=== PATIENT | female | born 1990 | race Caucasian/White ===

== ENCOUNTER 2023-01-24 12:03 | Inpatient (IN) | payer OTHER, SELFPAY ==
[2023-01-24 12:12] VITALS: BP 137/80; PULSE 92; RESP 16; TEMP 36.5; O2SAT 98; BMI 31.6
--- NOTE | 2023-01-24 12:46 | W.ED.PSYCHS ---
HPI - Psych General: Chief Complaint: Psychiatric Symptoms Stated Complaint: mhe Time Seen by Provider: 01/24/23 12:03 Source: patient Mode of arrival: ambulatory Limitations: no limitations History of Present Illness: 32-year-old female with history of bipolar states that she feels like she is overmedicated. She states she is just been feeling very out of it very flat she states she been having increasing depression as well as along with increasing suicidal thoughts. She states she does not have a specific plan but this has had more severe depression than typical for her. She denies any worsening proving factors. Associated symptoms: Reports depression and suicidal ideation Review of Systems Const: Denies: fever(s), chills, body aches or change in appetite Eyes: Denies: blurry vision or eye discomfort ENMT: Denies: throat pain or dental pain Card: Denies: chest pain Resp: Denies: dyspnea GI: Denies: abdominal pain or nausea Musc: Denies: neck pain or back pain Skin/Breast: Denies: rash Neuro: Denies: headache(s) Psych: Reports: depression and suicidal ideation Physical Exam Const: COMMON NORMALS: no acute distress, patient oriented x3 and healthy appearing HENMT: COMMON NORMALS: normocephalic and atraumatic HEAD & SCALP: normocephalic and atraumatic Eye: COMMON NORMALS: conjunctivae normal CONJUNCTIVA: Yes conjunctivae normal Neck/C-Spine: COMMON NORMALS: full ROM and supple Chest: COMMONS NORMALS: normal inspection of the chest and normal palpation of entire chest wall Resp: COMMON NORMALS: normal respiratory effort, No retractions, No use of accessory muscles and clear to auscultation bilaterally AUSCULTATION: clear to auscultation bilaterally Cardio: COMMON NORMALS: regular rate, regular rhythm and No murmurs present (Cardio) RATE: regular rate RHYTHM: regular rhythm GI: COMMON NORMALS: Normal to inspection, nondistended, normoactive bowel sounds present, Soft to palpation, non-tender and no masses PALPATION: Yes Soft to palpation Extremity: COMMON NORMALS: normal to inspection and full ROM Neuro: COMMON NORMALS: patient oriented x3, moves all extremities and no focal motor deficits Psych: COMMON NORMALS: mental status grossly normal, Normal thought process present and cooperative ATTITUDE: Yes Withdrawn affect present MOOD & AFFECT: Yes depressed mood THOUGHT PROCESS: Normal thought process present Skin: COMMON NORMALS: no rashes or lesions noted and no wounds GENERAL SKIN EXAM: no rashes or lesions noted Course Vital Signs: Vital signs: Vital Signs Temperature 97.7 F 01/24/23 12:12 Pulse Rate 92 01/24/23 12:12 Respiratory Rate 16 01/24/23 12:12 Blood Pressure 137/80 01/24/23 12:12 Pulse Oximetry 98 01/24/23 12:12 Oxygen Delivery Me thod Room Air 01/24/23 12:12 [facility] - Psych Medical Decision Making Patient presents here with depression history of bipolar she is voluntarily wanting to be admitted she is medically cleared I spoke to the psychiatrist and will admit to the psych [facility]. Medical Records I reviewed the patient's medical records. Lab Data I reviewed the patient's lab results. 01/24/23 12:42 01/24/23 12:42 Laboratory Results WBC 9.2 10^3/uL (4.0-10.0) 01/24/23 12:42 RBC 4.60 10^6/uL (4.1-5.3) 01/24/23 12:42 Hgb 13.9 g/dL (11.5-15.3) 01/24/23 12:42 Hct 43.1 % (37.0-47.0) 01/24/23 12:42 MCV 93.7 fl (81-99) 01/24/23 12:42 MCH 30.2 pg (28.0-34.0) 01/24/23 12:42 MCHC 32.3 g/dL (30.0-36.0) 01/24/23 12:42 RDW 14.0 % (12.1-15.1) 01/24/23 12:42 Plt Count 286 10^3/cmm (130-400) 01/24/23 12:42 MPV 10.6 fL (7.4-10.4) H 01/24/23 12:42 Neut % (Auto) 67.0 % 01/24/23 12:42 Lymph % (Auto) 25.2 % 01/24/23 12:42 [place] % (Auto) 6.0 % 01/24/23 12:42 Eos % (Auto) 1.1 % 01/24/23 12:42 Baso % (Auto) 0.5 % 01/24/23 12:42 Neut # (Auto) 6.14 10^3/uL (1.8-7.7) 01/24/23 12:42 Lymph # (Auto) 2.3 10^3/uL (0.8-4.8) 01/24/23 12:42 [place] # (Auto) 0.6 10^3/uL (0.2-0.9) 01/24/23 12:42 Eos # (Auto) 0.1 10^3/uL (0.0-0.8) 01/24/23 12:42 Baso # (Auto) 0.1 10^3/uL (0.0-0.1) 01/24/23 12:42 Nucleated RBC % (auto) 0 % 01/24/23 12:42 Nucleated RBCs # 0.0 /100WBC 01/24/23 12:42 HCG, Qual Negative (Negative) 01/24/23 12:30 Discharge Plan Discharge Patient Disposition: Admitted As Inpatient Clinical Impression: Depression, Bipolar disorder Condition: Stable Referrals: Thomas Sapp FNP [Primary Care Provider] - Coding Level of Care Code ED [facility] for Lemuel Vidal
[2023-01-24 13:00] LABS: Basophils # 0.1 10^3/uL (0.0-0.1); Basophils % 0.5 %; Eosinophils # 0.1 10^3/uL (0.0-0.8); Eosinophils % 1.1 %; Hematocrit 43.1 % (37.0-47.0); Hemoglobin 13.9 g/dL (11.5-15.3); Lymphocytes # 2.3 10^3/uL (0.8-4.8); Lymphocytes % 25.2 %; Mean Corpuscular HGB Conc 32.3 g/dL (30.0-36.0); Mean Corpuscular Hemoglobin 30.2 pg (28.0-34.0); Mean Corpuscular Volume 93.7 fl (81-99); Mean Platelet Volume 10.6 fL (7.4-10.4); Monocytes # 0.6 10^3/uL (0.2-0.9); Neutrophils # 6.14 10^3/uL (1.8-7.7); Nucleated Red Blood Cells % 0 %; Platelet Count 286 10^3/cmm (130-400); White Blood Count 9.2 10^3/uL (4.0-10.0)
[2023-01-24 13:02] LABS: HCG Qualitative Urine. Negative (Negative)
[2023-01-24 13:21] LABS: Alanine Aminotransferase 12 U/L (0-33); Albumin Level 4.1 g/dL (3.5-5.2); Alkaline Phosphatase 41 U/L (35-105); Anion Gap 19.2 (5-19); Aspartate Amino Transferase 13 U/L (0-32); Blood Urea Nitrogen 14 mg/dL (6-20); Calcium 8.8 mg/dL (8.5-10.5); Carbon Dioxide 23 mmol/L (22-29); Chloride 100 mmol/L (98-107); Creatinine Clr Calc Pharmacy 107.4211; Globulin 3.2 g/dL (1.3-4.6); Glomerular Filtration Rate 82.1 mL/min (90-130); Glucose 134 mg/dL (65-115); Osmolality Calculated 288 mOsm/kg (285-295); Potassium 4.2 mmol/L (3.5-5.1); Sodium 138 mmol/L (136-145); Total Bilirubin 0.3 mg/dL (0.15-1.2); Total Protein 7.3 g/dL (6.6-8.7)
[2023-01-24 13:25] LABS: Acetaminophen < 5.0 ug/mL (10-30); Alcohol Level < 10 mg/dL (0-10); Salicylate < 0.3 mg/dL (3-10)
[2023-01-24 13:27] LABS: Amphetamines Screen Urine Negative (Negative); Barbiturates Screen Urine Negative (Negative); Benzodiazepines Screen Urine Negative (Negative); Cocaine Screen Urine Negative (Negative); Opiate Screen Urine Negative (Negative); PCP Screen Urine Negative (Negative); THC Screen Urine Negative (Negative)
[2023-01-24 14:19] VITALS: BP 107/72; PULSE 79; RESP 16; TEMP 37; O2SAT 98
--- NOTE | 2023-01-24 19:29 | P.NPUHP_ITS ---
Providers/Chief Complaint Admitting Physician: Biju Pedro MD Primary Care Provider: SANTOSH Robert Chief Complaint: mhe HPI NPU History of Present Illness Latesha Elkins is a 32 year old female with a history of type I bipolar disorder diagnosed 12 years ago who reports that she has been feeling more depressed for several months. She endorses that this is her third hospitalization for depression in the last 4 months. She reports that she has felt like her depression is getting worse. She reports low motivation and reports feeling excessively tired. She reports an increase sense of hopelessness and stated that she did not mind if she was . She reports that there has been no recent problems with barrett since her hospitalization in August 2021 for a manic episode. She does report that she had been hospitalized in September 2022 at [facility] and had been prescribed Risperdal doses of 6 mg/day with the patient reporting feeling excessively sedated. She reports that she had lower that medication down to 4 mg a day but continues to report feeling excessively tired. She had reported that she has had an extended history of medication trials for managing her manic episodes. She reports no history of mixed mood symptoms. She endorses having frequent cycling with episodes of depression or barrett occurring at least once every 3 months. She reports that she has been more tearful and states that she has been more forgetful and st ruggling with concentration. She had reported that she had been terrified at the possibility that her 2-year-old son had accidentally taken a pill that she thought she had left out in the home. She reports having some problems with managing reality stating that she sometimes has unusual thoughts when she is depressed as well as at times when she is manic. Her manic symptoms historically have consisted of periods of either irritability or depression with decreased need for sleep and racing thoughts. She denies any drug or alcohol abuse. Inpatient psychiatric history: She reports at least 7-8 psychiatric hospitalizations beginning at the age of 20 initially diagnosed with depression but later confirmed to have bipolar 1 disorder with a past history of overdose on medications with most recent hospitalization in September 2022 at [facility]. Outpatient psychiatric history: She reports that she sees a Dr. TIFF Damon. She reports previous medication trials include Jose Benz lithium Wellbutrin olanzapine and Prozac. Current psychiatric medications: Risperdal 2 mg 3 times a day, Depakote 500 mg twice a day, Celexa 40 mg daily, Synthroid 88 mcg daily Medical history: Hypothyroidism Surgical history: 2 C-sections Allergies: Penicillin Legal history: None Drug and alcohol history: None actively, she had reported occasional alcohol use but denies any history of alcohol dependence with no history of withdrawal symptoms. Family psychiatric history maternal history of depression and maternal grandmother have been diagnosed with bipolar disorder Social history: Patient was born in [place] and raised in an intact family. She reported no educational difficulties and graduated high school while attending college. She denied any history of mood disorders and no history of sexual physical or emotional abuse reported during childhood or adulthood. 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 She has 2 children ages 4 and 2. 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 She reports good social supports. Meds NPU Allergies Allergy/AdvReac Type Severity Reaction Status Date / Time Penicillins Allergy ALGY-Rash Verified 01/24/23 12:18 Mental Status Exam MSE Comments: She is a casually dressed pleasant white female who appeared in moderate to severe distress. There was significant psychomotor retardation and some psychomotor slowing. Patient did appear to have some cogwheel rigidity on examination and a slow but steady gait. Her speech was monotone in quality and normal in rate and volume. Her mood was described as depressed. Her affect was tearful and restricted in range. She endorsed passive suicidal ideation with no active plan. She denied any homicidal ideation. She did not appear to be responding to internal stimuli. There was no clear evidence of delusional thinking or overvalued ideas. Her insight was limited. Her judgment was poor. Her impulse control appeared limited as well. Her recent and remote memory appeared grossly intact. She was alert and oriented to person place and time. Vitals/I&O/Wt Last Vital Signs Temp 98.6 F 01/24/23 14:19 Pulse 79 01/24/23 14:19 Resp 16 01/24/23 14:19 BP 107/72 01/24/23 14:19 Pulse Ox 98 01/24/23 14:19 O2 Del Method Room Air 01/24/23 14:22 Weight last 48 hrs Weight 86.183 kg Data NPU 01/24/23 12:42 01/24/23 12:42 A&P Assessment and plan (1) Bipolar disorder: Qualifiers: Current bipolar episode type: depressed Current episode severity: severe Psychotic features: unspecified (2) Depression: Plan 1.? ? Engage? patient in individual ,milieu, and group therapy ?2. ? We will attempt to gather collateral information from previous providers ?3. ? TO-15 minute checks on the unit. ?4.? Recommend sober living treatment at the highest level of care to which the patient is willing to commit. 5. Restart Risperidal but reduce to 1mg bid, and initiate seroquel XR 100mg nightly to target bipolar depression, Restart Depakote 500mg bid, Reduce Celexa to 20mg daily. Involuntary Hold Information 96 Hour Hold: 96 Hour Involuntary Admission: No Attestations NPU Medical Necessity Statement*: Inpatient hospitalization is medically necessary and deemed to be the clinically appropriate intervention at this time. The patient will be monitored and medications will be initiated as clinically indicated. The patient is expected to be hospitalized for at least 2 midnights. The patient's likely length of stay is 5 to 7 days. Coding Level of Care Code Acute Code for [facility] Fwd Diagnoses Bipolar disorder F31.9 Current bipolar episode type: depressed Current episode severity: severe Psychotic features: unspecified Depression F32.A
[2023-01-24] MEDS: quetiapine XR (24HR) 50 mg Tablet 100 MG PO (20:09)
[2023-01-24] MEDS: divalproex DR 500 mg Tablet PO (20:09)
[2023-01-24 22:00] VITALS: BP 111/78; PULSE 89; RESP 16; TEMP 36.4; O2SAT 97
[2023-01-25 06:00] VITALS: BP 108/78; PULSE 84; RESP 16; TEMP 36.7; O2SAT 97
[2023-01-25] MEDS: levothyroxine 88 mcg Tablet PO (06:19)
[2023-01-25] MEDS: citalopram 20 mg Tablet 10 MG PO (08:14)
[2023-01-25] MEDS: risperiDONE 1 mg Tablet PO ×2 (08:14→18:32)
[2023-01-25] MEDS: divalproex DR 500 mg Tablet PO ×2 (08:14→18:32)
[2023-01-25 14:00] VITALS: BP 94/59; PULSE 90; RESP 17; TEMP 36.7; O2SAT 99
--- NOTE | 2023-01-25 19:08 | P.NPUPN_ITS ---
Subjective NPU Subjective: Patient is a 32-year-old white female with bipolar disorder type I most recent episode depressed. She had continue to report a sense of hopelessness. Psychoeducation was provided to the patient today regarding barrett and depression. She had reported adequate sleep but stated that she felt tired with the combination of Seroquel and Risperdal despite its reduction. She had endorsed continued sense of hopelessness. She reported having no suicidal thoughts but did report concerns about being able to take care of her children. She had described having extended periods of unhappiness but reported no recent episodes of barrett. She had continued to isolate herself on the milieu. She had reported having difficulties with concentration and memory. Mental Status Exam MSE Comments: She is a casually dressed, pleasant white female who appeared in moderate to severe distress. There was significant psychomotor retardation and some psychomotor slowing. Her gait was slow and steady today. Her speech was monotone in quality and normal in rate and volume. Her mood remained depressed. Her affect was tearful and flat. She endorsed passive suicidal ideation with no active plan. She denied any homicidal ideation. She did not appear to be responding to internal stimuli. There was no clear evidence of delusional thinking or overvalued ideas. Her insight was limited. Her judgment was poor. Her impulse control appeared limited as well. Her recent and remote memory appeared grossly intact. She was alert and oriented to person place and time. Vitals/I&O/Wt Last Vital Signs Temp 98.1 F 01/25/23 14:00 Pulse 90 01/25/23 14:00 Resp 17 01/25/23 14:00 BP 94/59 01/25/23 14:00 Pulse Ox 99 01/25/23 14:00 O2 Del Method Room Air 01/25/23 06:00 Weight last 48 hrs Weight 86.183 kg Data NPU 01/24/23 12:42 01/24/23 12:42 A&P Assessment and plan (1) Bipolar disorder: Qualifiers: Current bipolar episode type: depressed Current episode severity: severe Psychotic features: unspecified (2) Depression: Plan 1.? ? Engage? patient in individual ,milieu, and group therapy ?2. ? We will attempt to gather collateral information from previous providers ?3. ? TO-15 minute checks on the unit. ?4.? Recommend sober living treatment at the highest level of care to which the patient is willing to commit. 5. Reduce risperidone to 1mg at night , and continue seroquel XR at 100mg nightly to target bipolar depression with titration over next 2-3 days. Continue Depakote 500mg bid, Reduce Celexa to 10mg daily. Involuntary Hold Information 96 Hour Hold: 96 Hour Involuntary Admission: No Attestations NPU Medical Necessity Statement*: Inpatient hospitalization is medically necessary and deemed to be the clinically appropriate intervention at this time. The patient's likely length of stay is 5 to 7 days. Coding Level of Care Code Acute Code for [facility] Fwd Diagnoses Bipolar disorder F31.9 Current bipolar episode type: depressed Current episode severity: severe Psychotic features: unspecified Depression F32.A
[2023-01-25] MEDS: quetiapine XR (24HR) 50 mg Tablet 100 MG PO (20:41)
[2023-01-25 22:00] VITALS: BP 85/61; PULSE 99; RESP 16; TEMP 36.7; O2SAT 98
[2023-01-26 06:00] VITALS: BP 132/80; PULSE 88; RESP 15; TEMP 36.5; O2SAT 97
[2023-01-26] MEDS: levothyroxine 88 mcg Tablet PO (09:04)
[2023-01-26] MEDS: citalopram 20 mg Tablet 10 MG PO (09:04)
[2023-01-26] MEDS: divalproex DR 500 mg Tablet PO ×2 (09:04→17:44)
[2023-01-26 14:00] VITALS: BP 91/63; PULSE 86; RESP 16; TEMP 36.7; O2SAT 97
--- NOTE | 2023-01-26 17:37 | P.NPUPN_ITS ---
Subjective NPU Subjective: Patient is a 32-year-old white female with bipolar disorder type I most recent episode depressed. The patient continued to appear depressed. She reported no suicidal thoughts. She had reported some muscle pain. She reported no manic symptoms. She had reported having slept well with the Seroquel initiation. She had continued to isolate herself on the milieu. She reported continued chronic worry about her home situation. She had reported sadness over putting family members under excess duress because of her chronic mental illness. She had been able to attend groups without any difficulty. Mental Status Exam MSE Comments: She is a casually dressed, pleasant white female who appeared in moderate to severe distress. There was significant psychomotor retardation and along with psychomotor slowing.. Her gait was more normal in rate today.. Her speech was monotone in quality and normal in rate and volume. Her mood remained depressed. Her affect was restricted but less tearful. She endorsed passive suicidal ideation with no active plan. She denied any homicidal ideation. She did not appear to be responding to internal stimuli. There was no clear evidence of delusional thinking or overvalued ideas. Her insight was limited. Her judgment was poor. Her impulse control appeared limited as well. Her recent and remote memory appeared grossly intact. She was alert and oriented to person place and time. Vitals/I&O/Wt Last Vital Signs Temp 98.0 F 01/26/23 14:00 Pulse 86 01/26/23 14:00 Resp 16 01/26/23 14:00 BP 91/63 01/26/23 14:00 Pulse Ox 97 01/26/23 14:00 O2 Del Method Room Air 01/26/23 14:00 Data NPU 01/24/23 12:42 01/24/23 12:42 A&P Assessment and plan (1) Bipolar disorder: Qualifiers: Current bipolar episode type: depressed Current episode severity: severe Psychotic features: unspecified (2) Depression: Plan 1.? ? Engage? patient in individual ,milieu, and group therapy 2. ? We will attempt to gather collateral information from previous providers 3. ? TO-15 minute checks on the unit. ? 4.? Recommend sober living treatment at the highest level of care to which the patient is willing to commit. 5. Discontinue Risperdal and increase Seroquel XR 250 mg nightly to target bipolar depression. Continue Depakote 500mg bid, Reduce Celexa to 10mg daily with plan for discontinuation. Involuntary Hold Information 96 Hour Hold: 96 Hour Involuntary Admission: No Attestations NPU Medical Necessity Statement*: Inpatient hospitalization is medically necessary and deemed to be the clinically appropriate intervention at this time. The patient's likely length of stay is 4-6 days. Coding Level of Care Code Acute Code for [facility] Fwd Diagnoses Bipolar disorder F31.9 Current bipolar episode type: depressed Current episode severity: severe Psychotic features: unspecified Depression F32.A
[2023-01-26] MEDS: quetiapine XR (24HR) 50 mg Tablet 150 MG PO (20:32)
[2023-01-26 22:00] VITALS: BP 105/72; PULSE 91; RESP 18; O2SAT 96
[2023-01-27 06:00] VITALS: BP 106/74; PULSE 80; RESP 17; TEMP 36.4; O2SAT 98
[2023-01-27] MEDS: levothyroxine 88 mcg Tablet PO (09:22)
[2023-01-27] MEDS: divalproex DR 500 mg Tablet PO ×2 (09:22→18:31)
[2023-01-27] MEDS: citalopram 20 mg Tablet 10 MG PO (09:22)
[2023-01-27 14:00] VITALS: BP 92/61; PULSE 98; RESP 16; TEMP 36.7; O2SAT 97
--- NOTE | 2023-01-27 15:31 | W.PM.NPUPNS ---
Subjective NPU Subjective: Patient is a 32-year-old white female with bipolar disorder type I most recent episode depressed. The patient had reported feeling less hopeless. She had endorsed having some muscle stiffness. She had reported no changes in regards to energy as she continued to complain of low energy and low motivation. She had continued to isolate herself on the milieu. She reported no feelings of hopelessness or worthlessness. Patient had reported less confusion and stated that she was feeling better with the reduction in risperidone. She had reported having significant problems with maintaining concentration for several months but reported that it exacerbated with the increase in risperidone. Patient was able to attend groups. She had shown evidence of taking care of her activities of daily living. Mental Status Exam MSE Comments: She is a casually dressed, pleasant white female who appeared in moderate distress. There was moderate psychomotor retardation and along with psychomotor slowing. Her gait was more normal in rate today. Her speech was monotone in quality and normal in rate and volume. Her mood remained depressed. Her affect was restricted but not tearful today. She endorsed no suicidal ideation. She denied any homicidal ideation. She did not appear to be responding to internal stimuli. There was no clear evidence of delusional thinking or overvalued ideas. Her insight was limited. Her judgment was poor. Her impulse control appeared limited as well. Her recent and remote memory appeared grossly intact. She was alert and oriented to person place and time. Vitals/I&O/Wt Last Vital Signs Temp 98.1 F 01/27/23 14:00 Pulse 98 01/27/23 14:00 Resp 16 01/27/23 14:00 BP 92/61 01/27/23 14:00 Pulse Ox 97 01/27/23 14:00 O2 Del Method Room Air 01/27/23 06:00 Data NPU 01/24/23 12:42 01/24/23 12:42 A&P Assessment and plan (1) Bipolar disorder: Qualifiers: Current bipolar episode type: depressed Current episode severity: severe Psychotic features: unspecified (2) Depression: Plan 1.? ? Engage? patient in individual ,milieu, and group therapy 2. ? We will attempt to gather collateral information from previous providers 3. ? TO-15 minute checks on the unit. ? 4.? Recommend sober living treatment at the highest level of care to which the patient is willing to commit. 5. Discontinue Risperdal and increase Seroquel XR to 200 mg nightly to target bipolar depression. Continue Depakote 500mg bid, Discontinue celexa. Involuntary Hold Information 96 Hour Hold: 96 Hour Involuntary Admission: No Attestations NPU Medical Necessity Statement*: Inpatient hospitalization is medically necessary and deemed to be the clinically appropriate intervention at this time. The patient's likely length of stay is 4-6 days. Coding Level of Care Code Acute Code for [facility] Diagnoses Bipolar disorder F31.9 Current bipolar episode type: depressed Current episode severity: severe Psychotic features: unspecified Depression F32.A
[2023-01-27] MEDS: quetiapine XR (24HR) 50 mg Tablet 200 MG PO (18:32)
[2023-01-27 22:00] VITALS: BP 99/70; PULSE 78; RESP 16; TEMP 36.6; O2SAT 98
[2023-01-28 06:00] VITALS: BP 90/61; PULSE 82; RESP 19; TEMP 36.6; O2SAT 97
[2023-01-28] MEDS: levothyroxine 88 mcg Tablet PO (09:09)
[2023-01-28] MEDS: divalproex DR 500 mg Tablet PO ×2 (09:09→18:28)
[2023-01-28 14:00] VITALS: BP 113/72; PULSE 70; RESP 15; TEMP 36.7; O2SAT 99
--- NOTE | 2023-01-28 17:08 | NPU.GN ---
[facility] Group Topic: Painting General Mood of Group patient participated in group by painting three pictures. Listened to music and interacted with the group
--- NOTE | 2023-01-28 17:53 | W.PM.NPUPNS ---
Subjective NPU Subjective: Patient is a 32-year-old white female with bipolar disorder type I most recent episode depressed. The patient reported feeling less depressed and reports that she was motivated to get back to taking care of her children. She reports no feelings of hopelessness. She had reported that she felt excessively groggy on her seroquel xr at 200mg at night. She reported no worsening stiffness and stated feeling more alert but reported continued lack of energy. She reported no manic symptoms currently. Mental Status Exam MSE Comments: She is a casually dressed, pleasant white female who appeared in mild distress. There was mild psychomotor retardation and along with psychomotor slowing. Her gait was more normal in rate today. Her speech was monotone in quality and normal in rate and volume. Her mood was described as less depressed. Her affect was restricted in range. She endorsed no suicidal ideation. She denied any homicidal ideation. She did not appear to be responding to internal stimuli. There was no clear evidence of delusional thinking or overvalued ideas. Her insight was limited. Her judgment was poor. Her impulse control appeared limited as well. Her recent and remote memory appeared grossly intact. She was alert and oriented to person place and time. Vitals/I&O/Wt Last Vital Signs Temp 98.1 F 01/28/23 14:00 Pulse 70 01/28/23 14:00 Resp 15 01/28/23 14:00 BP 113/72 01/28/23 14:00 Pulse Ox 99 01/28/23 14:00 O2 Del Method Room Air 01/28/23 06:00 Data NPU 01/24/23 12:42 01/24/23 12:42 A&P Assessment and plan (1) Bipolar disorder: Qualifiers: Current bipolar episode type: depressed Current episode severity: severe Psychotic features: unspecified (2) Depression: Plan 32 year old female admitted with bipolar depression with suicidal ideation and feelings of hopelessness with 3 recent inpatient hospitalizations in last 3 months. 1.? ? Engage? patient in individual ,milieu, and group therapy 2. ? We will attempt to gather collateral information from previous providers 3. ? TO-15 minute checks on the unit. ? 4.? Recommend sober living treatment at the highest level of care to which the patient is willing to commit. 5. Reduce Seroquel XR 150 mg at night to target bipolar depression. Continue Depakote 500mg bid, Check depakote level, cbc with diff, and LFT Involuntary Hold Information 96 Hour Hold: 96 Hour Involuntary Admission: No Attestations NPU Medical Necessity Statement*: Inpatient hospitalization is medically necessary and deemed to be the clinically appropriate intervention at this time. The patient's likely length of stay is 2-3 days. Coding Level of Care Code Acute Code for [facility] Fwd Diagnoses Bipolar disorder F31.9 Current bipolar episode type: depressed Current episode severity: severe Psychotic features: unspecified Depression F32.A
[2023-01-28] MEDS: quetiapine XR (24HR) 50 mg Tablet 150 MG PO (18:28)
[2023-01-28 19:55] VITALS: BP 90/56; PULSE 96; RESP 18; TEMP 36.7; O2SAT 98
[2023-01-29 05:37] VITALS: BP 88/57; PULSE 92; RESP 15; TEMP 36.6; O2SAT 98; BMI 31.1
[2023-01-29] MEDS: divalproex DR 500 mg Tablet PO (09:05)
[2023-01-29] MEDS: levothyroxine 88 mcg Tablet PO (09:05)
[2023-01-29 09:24] LABS: Basophils # 0.1 10^3/uL (0.0-0.1); Basophils % 0.8 %; Eosinophils # 0.2 10^3/uL (0.0-0.8); Eosinophils % 3.3 %; Hemoglobin 14.2 g/dL (11.5-15.3); Lymphocytes # 2.9 10^3/uL (0.8-4.8); Lymphocytes % 45.3 %; Mean Corpuscular HGB Conc 30.2 g/dL (30.0-36.0); Mean Corpuscular Volume 99.2 fl (81-99); Mean Platelet Volume 10.7 fL (7.4-10.4); Monocytes # 0.5 10^3/uL (0.2-0.9); Monocytes % 7.9 %; Neutrophils # 2.66 10^3/uL (1.8-7.7); Neutrophils % 42.4 %; Nucleated Red Blood Cells % 0 %; Platelet Count 238 10^3/cmm (130-400); Red Blood Count 4.74 10^6/uL (4.1-5.3); Red Cell Distribution Width 13.6 % (12.1-15.1); White Blood Count 6.3 10^3/uL (4.0-10.0)
[2023-01-29 09:41] LABS: Valproic Acid Level 71.2 ug/mL (50-100)
[2023-01-29 11:30] LABS: Alanine Aminotransferase 13 U/L (0-33); Albumin Level 3.9 g/dL (3.5-5.2); Alkaline Phosphatase 42 U/L (35-105); Aspartate Amino Transferase 15 U/L (0-32); Globulin 2.8 g/dL (1.3-4.6); Total Bilirubin 0.2 mg/dL (0.15-1.2); Total Protein 6.7 g/dL (6.6-8.7)
--- NOTE | 2023-01-29 11:30 | W.PM.NPUDCS ---
Diagnoses at Discharge Discharge Diagnosis (1) Bipolar disorder: Status: Acute Qualifiers: Current bipolar episode type: depressed Current episode severity: severe Psychotic features: unspecified (2) Depression: Status: Acute Reason for Visit Reason for Visit: mhe Brief History: HPI NPU History of Present Illness Latesha Elkins is a 32 year old female with a history of type I bipolar disorder diagnosed 12 years ago who reports that she has been feeling more depressed for several months.? She endorses that this is her third hospitalization for depression in the last 4 months.? She reports that she has felt like her depression is getting worse.? She reports low motivation and reports feeling excessively tired.? She reports an increase sense of hopelessness and stated that she did not mind if she was .? She reports that there has been no recent problems with barrett since her hospitalization in August 2021 for a manic episode.? She does report that she had been hospitalized in September 2022 at [facility] and had been prescribed Risperdal doses of 6 mg/day with the patient reporting feeling excessively sedated.? She reports that she had lower that medication down to 4 mg a day but continues to report feeling excessively tired.? She had reported that she has had an extended history of medication trials for managing her manic episodes.? She reports no history of mixed mood symptoms.? She endorses having frequent cycling with episodes of depression or barrett occurring at least once every 3 months.? She reports that she has been more tearful and states that she has been more forgetful and struggling with concentration.? She had reported that she had been terrified at the possibility that her 2-year-old son had accidentally taken a pill that she thought she had left out in the home.? She reports having some problems with managing reality stating that she sometimes has unusual thoughts when she is depressed as well as at times when she is manic.? Her manic symptoms historically have consisted of periods of either irritability or depression with decreased need for sleep and racing thoughts.? She denies any drug or alcohol abuse. Inpatient psychiatric history: She reports at least 7-8 psychiatric hospitalizations beginning at the age of 20 initially diagnosed with depression but later confirmed to have bipolar 1 disorder with a past history of overdose on medications with most recent hospitalization in September 2022 at [facility]. Outpatient psychiatric history: She reports that she sees a Dr. TIFF Damon.? She reports previous medication trials include Geodon Abilify Latuda lithium Wellbutrin olanzapine and Prozac. Current psychiatric medications: Risperdal 2 mg 3 times a day, Depakote 500 mg twice a day, Celexa 40 mg daily, Synthroid 88 mcg daily Medical history: Hypothyroidism Surgical history: 2 C-sections Allergies: Penicillin Legal history: None Drug and alcohol history: None actively, she had reported occasional alcohol use but denies any history of alcohol dependence with no history of withdrawal symptoms. Family psychiatric history maternal history of depression and maternal grandmother have been diagnosed with bipolar disorder Social history: Patient was born in [place] and raised in an intact family.? She reported no educational difficulties and graduated high school while attending college.? She denied any history of mood disorders and no history of sexual physical or emotional abuse reported during childhood or adulthood.? 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 She has 2 children ages 4 and 2.? 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 She reports good social supports. Hospital Course Hospital Course During the hospitalization, the patient had routine laboratory studies which were within normal limits except for a few outliers.? Additionally, there was a general medical evaluation which was also within normal limits and revealed no new acute processes.? At the time of discharge, lethality was denied and psychosis was resolving.? Mood and anxiety were well managed.? The patient endorsed a plan to avoid all drugs of abuse and follow up with the aftercare recommendations of the treatment team.? The patient was evaluated and deemed to be absent credible lethality and had achieved the maximum benefit from an inpatient hospitalization, and so was discharged.? Risperidone was tapered and discontinued. Seroquel xr was titrated up to a dose of 200mg at night and patient reported excess sedation and this was reduced to 150mg xr prior to discharge. Patient showed improvement in energy and concentration prior to discharge. Her depakote level was drawn on day of discharge and was 71.2, Liver function tests were within normal limits as well as her CBC on discharge. Involuntary Hold Information 96 Hour Hold: 96 Hour Involuntary Admission: No Mental Status Exam MSE Comments: She is a casually dressed, pleasant white female who appeared in no acute distress. There was slight psychomotor slowing but appeared much improved from admission. Her speech was monotone in quality and normal in rate and volume. Her mood was described as better. Her affect was less restricted in range. She endorsed no suicidal ideation. She denied any homicidal ideation. She did not appear to be responding to internal stimuli. There was no clear evidence of delusional thinking or overvalued ideas. Her insight was improved. Her judgment was fair. Her impulse control appeared improved. Her recent and remote memory appeared grossly intact. She was alert and oriented to person place and time. Discharge Data Studies Completed and Pending: Laboratory Results WBC 6.3 10^3/uL (4.0- 10.0) 01/29/23 08:47 RBC 4.74 10^6/uL (4.1 -5.3) 01/29/23 08:47 Hgb 14.2 g/dL (11.5-1 5.3) 01/29/23 08:47 Hct 47.0 % (37.0-47.0 ) 01/29/23 08:47 MCV 99.2 fl (81-99) H 01/29/23 08:47 MCH 30.0 pg (28.0-34. 0) 01/29/23 08:47 MCHC 30.2 g/dL (30.0-3 6.0) 01/29/23 08:47 RDW 13.6 % (12.1-15.1 ) 01/29/23 08:47 Plt Count 238 10^3/cmm (130 -400) 01/29/23 08:47 MPV 10.7 fL (7.4-10.4 ) H 01/29/23 08:47 Neut % (Auto) 42.4 % 01/29/23 08:47 Lymph % (Auto) 45.3 % 01/29/23 08:47 [place] % (Auto) 7.9 % 01/29/23 08:47 Eos % (Auto) 3.3 % 01/29/23 08:47 Baso % (Auto) 0.8 % 01/29/23 08:47 Neut # (Auto) 2.66 10^3/uL (1.8 -7.7) 01/29/23 08:47 Lymph # (Auto) 2.9 10^3/uL (0.8- 4.8) 01/29/23 08:47 [place] # (Auto) 0.5 10^3/uL (0.2- 0.9) 01/29/23 08:47 Eos # (Auto) 0.2 10^3/uL (0.0- 0.8) 01/29/23 08:47 Baso # (Auto) 0.1 10^3/uL (0.0- 0.1) 01/29/23 08:47 Nucleated RBC % (a uto) 0 % 01/29/23 08:47 Nucleated RBCs # 0.0 /100WBC 01/29/23 08:47 Sodium 138 mmol/L (136-1 45) 01/24/23 12:42 Potassium 4.2 mmol/L (3.5-5 .1) 01/24/23 12:42 Chloride 100 mmol/L (98-10 7) 01/24/23 12:42 Carbon Dioxide 23 mmol/L (22-29) 01/24/23 12:42 Anion Gap 19.2 (5-19) H 01/24/23 12:42 BUN 14 mg/dL (6-20) 01/24/23 12:42 Creatinine 0.8 mg/dL (0.5-0. 9) 01/24/23 12:42 GFR Calculation 82.1 mL/min (90-1 30) L 01/24/23 12:42 Glucose 134 mg/dL (65-115 ) H 01/24/23 12:42 Calculated Osmolal ity 288 mOsm/kg (285- 295) 01/24/23 12:42 Calcium 8.8 mg/dL (8.5-10 .5) 01/24/23 12:42 Total Bilirubin 0.2 mg/dL (0.15-1 .2) 01/29/23 08:47 Direct Bilirubin 0.20 mg/dL (0.00- 0.30) 01/29/23 08:47 AST 15 U/L (0-32) 01/29/23 08:47 ALT 13 U/L (0-33) 01/29/23 08:47 Alkaline Phosphata se 42 U/L (35-105) 01/29/23 08:47 Total Protein 6.7 g/dL (6.6-8.7 ) 01/29/23 08:47 Albumin 3.9 g/dL (3.5-5.2 ) 01/29/23 08:47 Globulin 2.8 g/dL (1.3-4.6 ) 01/29/23 08:47 HCG, Qual Negative (Negati ve) 01/24/23 12:30 Salicylates < 0.3 mg/dL (3-10 ) L 01/24/23 12:42 Urine Opiates Scre en Negative ng/mL (N egative) 01/24/23 12:30 Acetaminophen < 5.0 ug/mL (10-3 0) L 01/24/23 12:42 Ur Barbiturates Sc reen Negative ng/mL (N egative) 01/24/23 12:30 Valproic Acid 71.2 ug/mL (50-10 0) 01/29/23 08:47 Ur Phencyclidine S crn Negative ng/mL (N egative) 01/24/23 12:30 Ur Amphetamines Sc reen Negative ng/mL (N egative) 01/24/23 12:30 U Benzodiazepines Scrn Negative ng/mL (N egative) 01/24/23 12:30 Urine Cocaine Scre en Negative ng/mL (N egative) 01/24/23 12:30 U Marijuana (THC) Screen Negative ng/mL (N egative) 01/24/23 12:30 Ethyl Alcohol < 10 mg/dL (0-10) 01/24/23 12:42 Vitals: Last Vital Signs Temp 97.9 F 01/29/23 05:37 Pulse 92 01/29/23 05:37 Resp 15 01/29/23 05:37 BP 88/57 01/29/23 05:37 Pulse Ox 98 01/29/23 05:37 O2 Del Method Room Air 01/28/23 06:00 Discharge Plan Discharge Patient Disposition: Home Condition: Stable Prescriptions: New Seroquel XR 150 mg tablet extended release 24 hr 150 mg PO QPM Qty: 30 1RF Rx Instructions: Take at 6PM Seroquel XR 50 mg tablet extended release 24 hr 50 mg PO QPM 14 Days Qty: 14 0RF Continued divalproex 500 mg tablet,delayed release (DR/EC) 500 mg PO BID Qty: 60 1RF levothyroxine 88 mcg tablet 88 mcg PO DAILY 30 Days Qty: 30 1RF No Action risperidone 2 mg tablet 2 mg PO TID citalopram 20 mg tablet 20 mg PO DAILY Discharge Orders: Discharge Order (Routine); Ordered 01/29/23 Ordered By: Biju Pedro Referrals: [facility] [Other] - 02/06/23 10:00 am (Appointment with Psychiatrist Susana Bartlett. ) Thomas Sapp, [employer] [Primary Care Provider] - Discharge Diet: Usual diet Discharge Activity: Resume usual activity Patient Instructions: Bipolar Disorder, Depression, Quetiapine (By mouth), Opioid Safety Discharge Attestations NPU Time Spent in Discharge Care*: less than 30 min Coding Level of Care Code Acute [facility] FW DC note Diagnoses Bipolar disorder F31.9 Current bipolar episode type: depressed Current episode severity: severe Psychotic features: unspecified Depression F32.A
--- NOTE | 2023-01-29 11:35 | NPU.GN ---
[facility] Topic:Motivation General Mood of Group patient participated in group, writing down her personal mantras. Patient continues to have negative thoughts about the future. Offered examples of how to do them, with her children like they can color them and possibly say with her . Patient is asking insightful questions about negative thoughts and what to do if they don't go away.
[2023-01-29 11:45] VITALS: BP 88/57; PULSE 92; RESP 15; TEMP 36.6; O2SAT 98
== END 2023-01-29 12:24 | disposition home or self-care (01) | DRG 885 ==
LOC: ER 13:06 → NP 14:10
PROVIDERS: Admitting Provider Psychiatry & Neurology Psychiatry; Emergency Provider Emergency Medicine; PCP Nurse Practitioner; Visit Provider Psychiatry & Neurology Psychiatry
DX: F31.9 Bipolar disorder, unspecified (principal); E03.9 Hypothyroidism, unspecified; Z81.8 Family history of other mental and behavioral disorders
CPT/HCPCS: 36415; 80053; 80076; 80164; 80306; 80307; 81025; 85025; 97150; 97165; 99238; 99285

== ENCOUNTER 2024-06-07 09:10 | Inpatient (IN) | payer OTHER, SELFPAY ==
[2024-06-07 09:17] VITALS: BP 126/86; PULSE 101; RESP 18; TEMP 36.7; O2SAT 98
--- NOTE | 2024-06-07 09:30 | ED.C_ITS ---
HPI - Psych 2 General: Chief Complaint: Psychiatric Symptoms Stated Complaint: MHE Time Seen by Provider: 06/07/24 09:17 Source: patient and family () Mode of arrival: ambulatory Limitations: no limitations History of Present Illness: Patient is a 34-year-old female presents to ED today along with her for mental health evaluation. According to the , patient has been very paranoid at home over the past several days and talking about very elaborate conspiracy theories. She feels like people are after her. Upon arrival to the ER today, she is extremely paranoid. She feels like we are giving her medical information to other people. She is hesitant to provide a history and seems very and untrustful of medical staff. Her thoughts are illogical. states she has a history of Bipolar. MD complaint: altered mental status Onset (ago): day(s) Duration: constant History of same: No Relieving factors: none Exacerbating factors: none Associated psychiatric symptoms: delusions Associated symptoms: Reports delusions; Deny auditory hallucinations, visual hallucinations, depression, homicidal ideation or suicidal ideation Treatments prior to arrival: none Related Data Home Medications Medication Instructions Recorded Confirmed levothyroxine 88 mcg tablet 88 mcg PO QAM 06/07/24 06/07/24 quetiapine 25 mg tablet 25 - 75 mg PO BEDTIME 06/07/24 06/07/24 sertraline 50 mg tablet 50 mg PO QAM 06/07/24 06/07/24 Allergies Allergy/AdvReac Type Severity Reaction Status Date / Time Penicillins Allergy ALGY-Rash Verified 01/24/23 12:18 Review of Systems 2 Const: Denies: fever(s) or chills Card: Denies: chest pain, palpitations, lightheadedness or syncope Resp: Denies: dyspnea GI: Denies: abdominal pain, nausea, vomiting or diarrhea Skin/Breast: Denies: rash Neuro: Denies: headache(s) Psych: Reports: paranoia and difficulty concentrating; Denies: anxiety, depression, visual hallucinations, auditory hallucinations, suicidal ideation or homicidal ideation Physical Exam 2 Const: COMMON NORMALS: average body habitus, patient oriented x3, healthy appearing, alert and well nourished GENERAL APPEARANCE: well kempt Resp: COMMON NORMALS: normal respiratory effort and clear to auscultation bilaterally AUSCULTATION: clear to auscultation bilaterally Cardio: COMMON NORMALS: regular rate and regular rhythm RATE: regular rate RHYTHM: regular rhythm Neuro: COMMON NORMALS: patient oriented x3 SENSORIUM/ORIENTATION: Yes alert Psych: APPEARANCE: Yes grossly normal and Yes well kempt ATTITUDE: Yes calm ACTIVITY/MOTOR BEHAVIOR: Yes Avoids eye contact (attititude/behavior) S PEECH: Yes delayed MOOD & AFFECT: Yes fearful THOUGHT PROCESS: d isorganized and Illogical thought process present THOUGHT CONTENT: Yes delusions INSIGHT: Limited insight present (Psych) JUDGEMENT: Limited judgement present (Psych) Course 2 Consultations: Consultation #1: Dr. Blanco-accepts to NPU Vital Signs: Vital signs: Vital Signs Temperature 98.1 F 06/07/24 09:17 Pulse Rate 101 H 06/07/24 09:17 Respiratory Rate 18 06/07/24 09:17 Blood Pressure 126/86 06/07/24 09:17 Pulse Oximetry 98 06/07/24 09:58 Oxygen Delivery Me thod Room Air 06/07/24 09:58 [facility] - Psych Medical Decision Making Patient will be placed on a 96-hour hold and admitted to NPU for further evaluation and treatment of her psychosis. Medical Records I reviewed the patient's medical records. Lab Data I reviewed the patient's lab results. 06/07/24 09:37 06/07/24 09:37 Laboratory Results WBC 7.15 10^3/uL (3.29-11.43) 06/07/24 09:37 RBC 4.70 10^6/uL (3.85-5.65) 06/07/24 09:37 Hgb 14.00 g/dL (11.27-16.99) 06/07/24 09:37 Hct 42.6 % (36-47) 06/07/24 09:37 MCV 90.6 fl (85-98) 06/07/24 09:37 MCH 29.8 pg (27-33) 06/07/24 09:37 MCHC 32.9 g/dL (30-55) 06/07/24 09:37 RDW 13.1 % (12.1-15.1) 06/07/24 09:37 Plt Count 326 10^3/cmm (157-399) 06/07/24 09:37 MPV 9.6 fL (7.4-10.4) 06/07/24 09:37 Neut % (Auto) 71.7 % 06/07/24 09:37 Lymph % (Auto) 18.2 % 06/07/24 09:37 [place] % (Auto) 8.8 % 06/07/24 09:37 Eos % (Auto) 0.6 % 06/07/24 09:37 Baso % (Auto) 0.6 % 06/07/24 09:37 Neut # (Auto) 5.13 10^3/uL (1.8-7.7) 06/07/24 09:37 Lymph # (Auto) 1.3 10^3/uL (0.8-4.8) 06/07/24 09:37 [place] # (Auto) 0.6 10^3/uL (0.2-0.9) 06/07/24 09:37 Eos # (Auto) 0.0 10^3/uL (0.0-0.8) 06/07/24 09:37 Baso # (Auto) 0.0 10^3/uL (0.0-0.1) 06/07/24 09:37 Nucleated RBC % (auto) 0 % 06/07/24 09:37 Nucleated RBCs # 0.0 /100WBC 06/07/24 09:37 Sodium 136 mmol/L (136-145) 06/07/24 09:37 Potassium 4.1 mmol/L (3.5-5.1) 06/07/24 09:37 Chloride 103 mmol/L (98-107) 06/07/24 09:37 Carbon Dioxide 22 mmol/L (22-29) 06/07/24 09:37 Anion Gap 15.1 (5-19) 06/07/24 09:37 BUN 11 mg/dL (6-20) 06/07/24 09:37 Creatinine 0.6 mg/dL (0.5-0.9) 06/07/24 09:37 GFR Calculation 113.1 mL/min (90-130) 06/07/24 09:37 Glucose 104 mg/dL (65-115) 06/07/24 09:37 Calculated Osmolality 282 mOsm/kg (285-295) L 06/07/24 09:37 Calcium 8.5 mg/dL (8.5-10.5) 06/07/24 09:37 Total Bilirubin 0.3 mg/dL (0.15-1.2) 06/07/24 09:37 AST 16 U/L (0-32) 06/07/24 09:37 ALT 10 U/L (0-33) 06/07/24 09:37 Alkaline Phosphatase 76 U/L (35-105) 06/07/24 09:37 Total Protein 7.2 g/dL (6.6-8.7) 06/07/24 09:37 Albumin 4.5 g/dL (3.5-5.2) 06/07/24 09:37 Globulin 2.7 g/dL (1.3-4.6) 06/07/24 09:37 TSH 8.07 uIU/mL (0.27-4.20) H 06/07/24 09:37 HCG, Qual Negative (Negative) 06/07/24 09:37 Salicylates < 0.3 mg/dL (3-10) L 06/07/24 09:37 Acetaminophen < 5.0 ug/mL (10-30) L 06/07/24 09:37 Ethyl Alcohol < 10 mg/dL (0-10) 06/07/24 09:37 No radiology studies performed this visit Discharge Plan Discharge Patient Disposition: Admitted As Inpatient Clinical Impression: Acute psychosis Condition: Stable Coding Level of Care Code ED Hospital Aide for Lemuel Vidal
[2024-06-07 09:44] LABS: Basophils % 0.6 %; Eosinophils % 0.6 %; Hematocrit 42.6 % (36-47); Lymphocytes # 1.3 10^3/uL (0.8-4.8); Lymphocytes % 18.2 %; Mean Corpuscular HGB Conc 32.9 g/dL (30-55); Mean Corpuscular Hemoglobin 29.8 pg (27-33); Mean Corpuscular Volume 90.6 fl (85-98); Mean Platelet Volume 9.6 fL (7.4-10.4); Monocytes # 0.6 10^3/uL (0.2-0.9); Monocytes % 8.8 %; Neutrophils # 5.13 10^3/uL (1.8-7.7); Neutrophils % 71.7 %; Nucleated Red Blood Cells % 0 %; Platelet Count 326 10^3/cmm (157-399); Red Cell Distribution Width 13.1 % (12.1-15.1); White Blood Count 7.15 10^3/uL (3.29-11.43)
[2024-06-07 09:58] VITALS: O2SAT 98
[2024-06-07 10:01] LABS: HCG, Serum Qual Negative (Negative)
--- NOTE | 2024-06-07 10:10 | PC.NURSE ---
96 hour hold rights read to patient. Gabe from security present during reading of the rights. Patient very tearful at this time. She stated I am going to lose my job. This nurse attempted to reassure patient. Patient remains tearful and does not want to stay here. Copy of rights given to patient.
[2024-06-07 10:14] LABS: Alanine Aminotransferase 10 U/L (0-33); Albumin Level 4.5 g/dL (3.5-5.2); Alkaline Phosphatase 76 U/L (35-105); Anion Gap 15.1 (5-19); Aspartate Amino Transferase 16 U/L (0-32); Blood Urea Nitrogen 11 mg/dL (6-20); Calcium 8.5 mg/dL (8.5-10.5); Carbon Dioxide 22 mmol/L (22-29); Chloride 103 mmol/L (98-107); Globulin 2.7 g/dL (1.3-4.6); Glomerular Filtration Rate 113.1 mL/min (90-130); Glucose 104 mg/dL (65-115); Osmolality Calculated 282 mOsm/kg (285-295); Potassium 4.1 mmol/L (3.5-5.1); Sodium 136 mmol/L (136-145); Thyroid Stimulating Hormone 8.07 uIU/mL (0.27-4.20); Total Bilirubin 0.3 mg/dL (0.15-1.2); Total Protein 7.2 g/dL (6.6-8.7)
[2024-06-07 10:22] LABS: Acetaminophen < 5.0 ug/mL (10-30); Alcohol Level < 10 mg/dL (0-10); Salicylate < 0.3 mg/dL (3-10)
[2024-06-07 13:47] VITALS: BP 123/90; PULSE 104; RESP 17; O2SAT 98
[2024-06-07] MEDS: LORazepam 2 mg/mL INJ 1 mL 1 MG IM (14:18)
[2024-06-07 14:24] VITALS: PULSE 90; O2SAT 98
[2024-06-07 14:29] VITALS: BP 135/82; PULSE 97; RESP 16; TEMP 36.7; O2SAT 100
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
--- NOTE | 2024-06-07 16:47 | PC.NURSE ---
Patient walking the hallway and dayroom repeating, oh no, oh no, but will not tell staff what is bothering her. Patient also picking at a sore on her arm, but refusing any care for the sore at this time.
[2024-06-07] MEDS: quetiapine 25 mg Tablet 50 MG PO (20:44)
[2024-06-07 20:56] VITALS: BP 131/83; PULSE 90; RESP 18; TEMP 36.7; O2SAT 99
[2024-06-07] MEDS: hyDROXYzine 25 mg Capsule 50 MG PO (22:23)
[2024-06-07] MEDS: trazodone 50 mg Tablet PO (22:23)
[2024-06-07 22:31] LABS: Amphetamines Screen Urine Negative (Negative); Barbiturates Screen Urine Negative (Negative); Benzodiazepines Screen Urine Negative (Negative); Cocaine Screen Urine Negative (Negative); Opiate Screen Urine Negative (Negative); PCP Screen Urine Negative (Negative); THC Screen Urine Negative (Negative)
--- NOTE | 2024-06-07 23:21 | PC.NURSE ---
During 2199 nursing rounds, patient was lying face down humming loudly into her pillow. Nurse approached the patient and asked if she was ok. Patient had an exaggerated startle response and put her hands up in a defensive manner. Nurse reassured patient that she was safe. Patient sat on the side of the bed, rocking back and forth, saying oh no repeatedly. Nurse stayed with patient, asked her reality testing questions and directed her to use deep breathing techniques. Patient appeared to calm down. Nurse assured the patient that no one here would harm her. The patient kept looking at the corner of her room and her body language was very fearful. Nurse asked if the patient was seeing something else in the room with us but the patient stated she thinks she was in a dream. Patient denied auditory or visual hallucinations but continued to glance in the corner of her room every few minutes. Nurse encouraged patient to spend some time out of her room. Nurse provided patient with a cup of tea and discussed PRN medication available for anxiety and sleep. Patient agreed to take PRN meds. Nurse administered PRN hydroxyzine 50 mg and Trazodone 50 mg PO. Patient visited with nurse at the nurses station for a few minutes, asked for a refill on tea, thanked the nurse, and returned to her room.
[2024-06-08] MEDS: levothyroxine 88 mcg Tablet PO (05:26)
[2024-06-08] MEDS: OLANZapine 5 mg ODT PO (05:27)
[2024-06-08 05:59] VITALS: BP 120/79; PULSE 92; RESP 18; O2SAT 97
--- NOTE | 2024-06-08 06:45 | PC.NURSE ---
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 Patient frequently paced the halls and made repetitive attempts to enter different patient rooms. Nurse and DOLL REPAIRER verbally re directed the patient each time. Patient would approach the nurse station and make statements to the nurse I never hurt the babies , I think I was my grandpa , all these people are going to , there are music cues, and the guns, and the symbols on the lobo most of these statements were incomplete and the patient would not elaborate. The nurse reassured the patient she and the other patient's were safe and no one would hurt her. The patient would pace the halls repeating oh, no nurse administered PRN zyprexa 5 mg ODT. Behavior continued until shift change, requiring frequent re direction from nurses and DOLL REPAIRER's. This behavior upset some of the other patient's.
[2024-06-08] MEDS: haloperidol 5 mg Tablet PO (07:51)
[2024-06-08] MEDS: sertraline 50 mg Tablet PO (07:54)
--- NOTE | 2024-06-08 08:14 | PC.NURSE ---
Patient repeating, no, no, no, no, and crying off and on this morning. When asked what she was upset about she replied, something bad is going to happen. This RN assured the patient she was safe here and was not in any danger. Patient then said, people are making stuff with the dishes and watching in the cameras. This RN again reassured her that she was safe and that the cameras were also only placed there for patient safety, not to spy on them. When asked if she was experiencing any hallucinations she paused for a very long time, looked around as if she were experiencing some, and replied that she was not. Patient was agreeable to taking medication to help with her anxiety. She then ate breakfast, but has continued to repeat, no, no, no, to herself and pace the hallway. She was again reoriented to the unit and assured that she was safe.
[2024-06-08] MEDS: hyDROXYzine 25 mg Capsule 50 MG PO ×2 (10:13→21:27)
--- NOTE | 2024-06-08 10:57 | P.NPUHP_ITS ---
Providers/Chief Complaint 2 Admitting Physician: Charly Blanco MD Primary Care Provider: SANTOSH Robert Chief Complaint: MHE HPI NPU History of Present Illness Latesha Elkins is a 34 year old female who presented to the emergency department with the following report: Chief Complaint: Psychiatric Symptoms Stated Complaint: MHE Time Seen by Provider: 06/07/24 09:17 Source: patient and family () Mode of arrival: ambulatory Limitations: no limitations History of Present Illness: Patient is a 34-year-old female presents to ED today along with her for mental health evaluation. According to the , patient has been very paranoid at home over the past several days and talking about very elaborate conspiracy theories. She feels like people are after her. Upon arrival to the ER today, she is extremely paranoid. She feels like we are giving her medical information to other people. She is hesitant to provide a history and seems very and untrustful of medical staff. Her thoughts are illogical. states she has a history of Bipolar. MD complaint: altered mental status Onset (ago): day(s) Duration: constant History of same: No Relieving factors: none Exacerbating factors: none Associated psychiatric symptoms: delusions Associated symptoms: Reports delusions; Deny auditory hallucinations, visual hallucinations, depression, homicidal ideation or suicidal ideation Treatments prior to arrival: none She was admitted to the neuropsychiatric unit for definitive treatment of those issues. She is known to [facility] psychiatry only through inpatient psychiatric care from about 16 months ago. An excerpt of her discharge summary is included below for context and history especially given her significant psychosis on presentation. She presents today continuing to have no useable information for the interview. At the time that we were communicating she was receiving medication due to her being out of control. She was seen about 16 months ago and was discharged on Seroquel XR and Depakote as mood stabilizer/antipsychotic medication and she presented taking no mood stabilizers or antipsychotics with Zoloft 50 mg as her only second medication. I tried to discuss with her the danger in giving an SSRI to a person with bipolar disorder without a mood stabilizer or antipsychotic board but it did not appear she understood. She had no findings of positive substances in her UDS, and staff report continued bizarre behavior, aimless behavior, intense emotionality without any clear cause and this was also noted on direct observation. The discussed that we would reach out to her supports to get her information and discontinue the Zoloft and recommend Abilify as a mood stabilizer/antipsychotic. Discussed that Dr. Pedro had seen her in her last visit and would be here tomorrow to continue her care. Her her 01/29/2023 [facility] inpatient psychiatric discharge summary: Discharge Diagnosis (1) Bipolar disorder: Status: Acute Qualifiers: Current bipolar episode type: depressed Current episode severity: severe Psychotic features: unspecified (2) Depression: Status: Acute Reason for Visit Reason for Visit: mhe Brief History: HPI NPU History of Present Illness Latesha Elkins is a 32 year old female with a history of type I bipolar disorder diagnosed 12 years ago who reports that she has been feeling more depressed for several months. She endorses that this is her third hospitalization for depression in the last 4 months. She reports that she has felt like her depression is getting worse. She reports low motivation and reports feeling excessively tired. She reports an increase sense of hopelessness and stated that she did not mind if she was . She reports that there has been no recent problems with barrett since her hospitalization in August 2021 for a manic episode. She does report that she had been hospitalized in September 2022 at [facility] and had been prescribed Risperdal doses of 6 mg/day with the patient reporting feeling excessively sedated. She reports that she had lower that medication down to 4 mg a day but continues to report feeling excessively tired. She had reported that she has had an extended history of medication trials for managing her manic episodes. She reports no history of mixed mood symptoms. She endorses having frequent cycling with episodes of depression or barrett occurring at least once every 3 months. She reports that she has been more tearful and states that she has been more forgetful and struggling with concentration. She had reported that she had been terrified at the possibility that her 2-year-old son had accidentally taken a pill that she thought she had left out in the home. She reports having some problems with managing reality stating that she sometimes has unusual thoughts when she is depressed as well as at times when she is manic. Her manic symptoms historically have consisted of periods of either irritability or depression with decreased need for sleep and racing thoughts. She denies any drug or alcohol abuse. Inpatient psychiatric history: She reports at least 7-8 psychiatric hospitalizations beginning at the age of 20 initially diagnosed with depression but later confirmed to have bipolar 1 disorder with a past history of overdose on medications with most recent hospitalization in September 2022 at [facility]. Outpatient psychiatric history: She reports that she sees a Dr. TIFF Damon. She reports previous medication trials include Geodon Kian Latuda lithium Wellbutrin olanzapine and Prozac. Current psychiatric medications: Risperdal 2 mg 3 times a day, Depakote 500 mg twice a day, Celexa 40 mg daily, Synthroid 88 mcg daily Medical history: Hypothyroidism Surgical history: 2 C-sections Allergies: Penicillin Legal history: None Drug and alcohol history: None actively, she had reported occasional alcohol use but denies any history of alcohol dependence with no history of withdrawal symptoms. Family psychiatric history maternal history of depression and maternal grandmother have been diagnosed with bipolar disorder Social history: Patient was born in [place] and raised in an intact family. She reported no educational difficulties and graduated high school while attending college. She denied any history of mood disorders and no history of sexual physical or emotional abuse reported during childhood or adulthood. 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 She has 2 children ages 4 and 2. 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 She reports good social supports. Hospital Course During the hospitalization, the patient had routine laboratory studies which were within normal limits except for a few outliers. Additionally, there was a general medical evaluation which was also within normal limits and revealed no new acute processes. At the time of discharge, lethality was denied and psychosis was resolving. Mood and anxiety were well managed. The patient endorsed a plan to avoid all drugs of abuse and follow up with the aftercare recommendations of the treatment team. The patient was evaluated and deemed to be absent credible lethality and had achieved the maximum benefit from an inpatient hospitalization, and so was discharged. Risperidone was tapered and discontinued. Seroquel xr was titrated up to a dose of 200mg at night and patient reported excess sedation and this was reduced to 150mg xr prior to discharge. Patient showed improvement in energy and concentration prior to discharge. Her depakote level was drawn on day of discharge and was 71.2, Liver function tests were within normal limits as well as her CBC on discharge. Meds NPU Home Medications Medication Instructions Recorded Confirmed Last Taken Type levothyroxine 88 mcg tablet 88 mcg PO QAM 06/07/24 06/07/24 06/07/24 History quetiapine 25 mg tablet 25 - 75 mg PO BEDTIME 06/07/24 06/07/24 06/06/24 History sertraline 50 mg tablet 50 mg PO QAM 06/07/24 06/07/24 06/07/24 History Allergies Allergy/AdvReac Type Severity Reaction Status Date / Time Penicillins Allergy ALGY-Rash Verified 01/24/23 12:18 Mental Status Exam 2 MSE Comments: This is an overweight versus obese white female in hospital scrubs with limit grooming and eye contact. No abnormal movements except for psychomotor agitation. Uncooperative with exam in moderate to extreme distress. Speech was limited and not generally responsive to questions but at times increased rate and volume some screaming with no clear preceding event. Mood not described, affect guarded, fearful and agitated. Thought process was disorganized. Thought content: Patient did not respond to questions about lethality and did not have aggression towards herself or others but did have significant agitation, there were no delusions reported but could paranoid, persecutory and bizarre delusions noted, she did not respond to questions about auditory or visual hallucinations but she did her to be attending to internal stimuli. Attention and concentration as well as memory were impaired and not formally tested. She was alert but not oriented other than self. Insight, judgment and impulse control were impaired. Vitals/I&O/Wt Last Vital Signs Temp 98.1 F 06/07/24 20:56 Pulse 92 06/08/24 05:59 Resp 18 06/08/24 05:59 BP 120/79 06/08/24 05:59 Pulse Ox 97 06/08/24 05:59 O2 Del Method Room Air 06/07/24 14:32 Data NPU 06/07/24 09:37 06/07/24 09:37 A&P Assessment and plan (1) Bipolar disorder: Qualifiers: Current bipolar episode type: depressed Current episode severity: s evere Psychotic features: unspecified (2) Acute psychosis: (3) Barrett: (4) Thyroid disorder: Plan This is a 34-year-old female admitted with a known history of bipolar disorder from past treatment including an inpatient hospitalization 16 months ago presents only on an SSRI with reported psychosis, likely barrett and limited ability to communicate with a negative UDS or alcohol. 1.? ?Hold Zoloft and consider Abilify or other mood stabilizers/antipsychotic. 2. ? We will attempt to gather collateral information from previous providers and family. 3. ? TO-15 minute checks on the unit. ? 4.? Encourage individual, group and milieu therapy 5. Consider rechecking thyroid laboratory studies to rule out thyroid disorder for this presentation. Involuntary Hold Information 2 96 Hour Hold: 96 Hour Involuntary Admission: Yes 96 Hour Hold Ending Date: 06/13/24 96 Hour Hold Ending Time: 09:30 Other Hold: Hold End Date: 06/13/24 Attestations NPU 2 Medical Necessity Statement*: Inpatient hospitalization is medically necessary and the clinically appropriate intervention at this time. We we will monitor/initiate medications and make changes as indicated. The patient is expected to be hospitalized for at least 2 midnights. The patient's likely length of stay is 5 to 7 days. Coding Level of Care Code Acute Code for [facility] Fwd Diagnoses Bipolar disorder F31.9 Current bipolar episode type: depressed Current episode severity: severe Psychotic features: unspecified Acute psychosis F23 Barrett F30.9 Thyroid disorder E07.9
[2024-06-08] MEDS: ziprasidone 20 mg/mL SDV IM (11:10)
--- NOTE | 2024-06-08 11:40 | PC.NURSE ---
Patient approached a male patient in the dayroom and placed her hands over his eyes. This RN addressed the situation and asked her to not touch other patients or be in their personal space. The patient then tried to move closer to the other patient again and this RN stepped in between them. After talking further it appears she may have thought the patient was her son. Patient has been walking up and down the halls checking doors again, saying she knows her kids are in trouble and that we need to get a chainsaw to cut the doors down because they're in there. This RN asked her if she would like us to call her to check on her kids and she verbalized that she would. Her was called and he stated that she had talked with him a few times, but he says she has only asked how several of her other family members were doing but not her children. He stated the children were fine and agreed to talk to the patient and confirm with her that they were not in the hospital and were at home doing well. Staff was also able to find the patient a book to read to help redirect her. She is now in the dayroom with her book. Dr. Blanco notified. No new orders at this time.
[2024-06-08 14:00] VITALS: BP 118/84; PULSE 105; RESP 18; O2SAT 97
[2024-06-08 21:08] VITALS: BP 106/74; PULSE 117; RESP 20; TEMP 36.4; O2SAT 96
[2024-06-08] MEDS: quetiapine 25 mg Tablet 50 MG PO (21:26)
[2024-06-08] MEDS: trazodone 50 mg Tablet PO (21:27)
[2024-06-09] MEDS: levothyroxine 88 mcg Tablet PO (05:42)
[2024-06-09 06:00] VITALS: BP 109/76; PULSE 70; RESP 18; TEMP 36.6; O2SAT 97; BMI 32.5
[2024-06-09] MEDS: ziprasidone hcl 40 mg Capsule PO (09:01)
[2024-06-09 14:00] VITALS: BP 111/74; PULSE 103; RESP 18; TEMP 36.6; O2SAT 96
--- NOTE | 2024-06-09 19:43 | P.NPUPN_ITS ---
Subjective NPU 2 Subjective: Patient is a 34-year-old white female with bipolar disorder type I most recent episode depressed. The patient appeared extremely confused and stated that she was having problems with her thoughts. She had expressed concern that she could not concentrate and stated that she felt like there was nothing in her head. She had admitted to having depression but also reported periods of psychosis and continued to struggle with feeling suspicious of others. She had acknowledged feeling extremely unsafe at home but remained hesitant about elaborating any further. Mental Status Exam 2 MSE Comments: This is an overweight versus obese white female in hospital scrubs with limit grooming and eye contact. No abnormal movements except for psychomotor agitation. She was minimally cooperative with exam in moderate to extreme distress. Speech was limited and not generally responsive to questions but at times increased rate and volume some screaming with no clear preceding event. Mood was not endorsed. Affect was fearful and guarded. Thought process was disorganized. Thought content: Patient did not respond to questions about lethality and did not have aggression towards herself or others but did have significant agitation, There were no delusions reported but could paranoid, persecutory and bizarre delusions noted, she did not respond to questions about auditory or visual hallucinations but she did her to be attending to internal stimuli. Attention and concentration as well as memory were impaired and not formally tested. She was alert but not oriented other than self. Insight, judgment and impulse control were all impaired. Vitals/I&O/Wt Last Vital Signs Temp 98 F 06/09/24 14:00 Pulse 103 H 06/09/24 14:00 Resp 18 06/09/24 14:00 BP 111/74 06/09/24 14:00 Pulse Ox 96 06/09/24 14:00 O2 Del Method Room Air 06/09/24 14:00 Weight last 48 hrs Weight 88.621 kg Data NPU 06/07/24 09:37 06/07/24 09:37 A&P Assessment and plan (1) Bipolar disorder: Qualifiers: Current bipolar episode type: depressed Current episode severity: s evere Psychotic features: unspecified (2) Acute psychosis: (3) Claribel: (4) Thyroid disorder: Plan This is a 34-year-old female admitted with a known history of bipolar disorder from past treatment including an inpatient hospitalization 16 months ago presents only on an SSRI with reported psychosis, likely claribel and limited ability to communicate with a negative UDS or alcohol. 1.? ?trial of Invega 3mg at night. 2. ? We will attempt to gather collateral information from previous providers and family. 3. ? TO-15 minute checks on the unit. ? 4.? Encourage individual, group and milieu therapy 5. Consider rechecking thyroid laboratory studies to rule out thyroid disorder for this presentation. Involuntary Hold Information 2 96 Hour Hold: 96 Hour Involuntary Admission: Yes 96 Hour Hold Ending Date: 06/13/24 96 Hour Hold Ending Time: 09:30 Other Hold: Hold End Date: 06/13/24 Attestations NPU 2 Medical Necessity Statement*: Inpatient hospitalization is medically necessary and the clinically appropriate intervention at this time. We we will monitor/initiate medications and make changes as indicated. The patient's likely length of stay is 5 to 7 days. Coding Level of Care Code Acute Code for [facility] Fwd Diagnoses Bipolar disorder F31.9 Current bipolar episode type: depressed Current episode severity: severe Psychotic features: unspecified Acute psychosis F23 Claribel F30.9 Thyroid disorder E07.9
[2024-06-09 20:08] VITALS: BP 135/85; PULSE 104; RESP 16; TEMP 36.4; O2SAT 99
[2024-06-09] MEDS: paliperidone ER 3 mg Tablet PO (20:23)
[2024-06-10 04:22] VITALS: BP 108/74; PULSE 80; RESP 16; TEMP 36.8; O2SAT 97
[2024-06-10] MEDS: levothyroxine 88 mcg Tablet PO (06:25)
--- NOTE | 2024-06-10 09:15 | PC.NURSE ---
IN BED RESTING. PT IS TEARFUL DURING ASSESSMENT. PARANOID AND GUARDED WITH STAFF. CONFUSION IS NOTED AT TIMES. PT DOES KNOW THE DATE BUT BELIEVES THIS RN HAS COME INTO HER ROOM WITH DIFFERENT CLOTHES AND SHOES ON EVERYTIME. PT WILL STATE I THINK I'M JUST CONFUSED. DENIES SI/HI AND AVH AT THIS TIME. RATES ANXIETY 10/31 AND DEPRESSION 12/31. PT ALSO STATES SHE IS SCARED TO TAKE MEDICATIONS BECAUSE I'M GETTING DIFFERENT MEDICATIONS EVERY TIME AND THEY SHOULD ALL LOOK ALIKE. PT WAS EDUCATED ON TYPES OF MEDICATIONS AND THAT THE MEDICATIONS LOOK DIFFEERENT. AFFECT IS FLAT WITH DEPRESSED MOOD NOTED. ANIXIOUS DUE TO BE CONFUSED AND PARANOID. ALL. QUESTIONS ANSWERED AND SUPPORT VOICED.
[2024-06-10 14:00] VITALS: BP 106/73; PULSE 89; RESP 20; TEMP 36.4; O2SAT 98
[2024-06-10 19:58] VITALS: BP 95/55; PULSE 98; RESP 16; TEMP 36.7; O2SAT 97
[2024-06-10] MEDS: paliperidone ER 3 mg Tablet PO (19:59)
[2024-06-11 05:36] VITALS: BP 120/80; PULSE 78; RESP 16; TEMP 37.2; O2SAT 97
[2024-06-11] MEDS: levothyroxine 88 mcg Tablet PO (06:30)
[2024-06-11 14:00] VITALS: BP 102/59; PULSE 90; RESP 16; TEMP 36.5; O2SAT 100
--- NOTE | 2024-06-11 15:53 | W.PM.NPUPNS ---
Subjective NPU Subjective: Patient is a 34-year-old white female with bipolar disorder type I most recent episode depressed admitted with psychosis. The patient had continued to remain isolative and depressed on the unit. She had reported feeling extremely anxious. She had reported that she continued to struggle with memory and struggled with her thoughts being unclear. Staff notes patient was able to attend groups but appeared anxious and walked out earlier this afternoon. She reported that she was unable to recall whether she had been compliant with her medications prescribed but stated that she had not been taking her medications and several months. Mental Status Exam MSE Comments: This is an overweight versus obese, white female in hospital scrubs with limit grooming and eye contact. No abnormal movements except for psychomotor agitation. She was cooperative with exam in moderate to extreme distress. Speech was limited with slow response and continued decrease in productivity. Mood was described as anxious. Affect remained fearful and guarded. Thought process was more linear but superficial. Thought content: Patient did not respond to questions about lethality and did not have aggression towards herself or others. She continued to be responding to internal stimuli although she denied any auditory or visual hallucinations. Attention and concentration as well as memory were impaired and not formally tested. She was alert and oriented to person and place. Insight, judgment and impulse control were all impaired. Vitals/I&O/Wt Last Vital Signs Temp 97.7 F 06/11/24 14:00 Pulse 90 06/11/24 14:00 Resp 16 06/11/24 14:00 BP 102/59 06/11/24 14:00 Pulse Ox 100 06/11/24 14:00 O2 Del Method Room Air 06/11/24 14:00 Data NPU 06/07/24 09:37 06/07/24 09:37 A&P Assessment and plan (1) Bipolar disorder: Qualifiers: Current bipolar episode type: depressed Current episode severity: severe Psychotic features: unspecified (2) Acute psychosis: (3) Claribel: (4) Thyroid disorder: Plan This is a 34-year-old female admitted with a known history of bipolar disorder from past treatment including an inpatient hospitalization 16 months ago presents only on an SSRI with reported psychosis, likely claribel and limited ability to communicate with a negative UDS or alcohol. 1.? ?Trial of latuda 40mg at 6PM, d/c invega. Trial of lamotrigine 50mg daily to target bipolar depression. 2. ? We will attempt to gather collateral information from previous providers and family. 3. ? TO-15 minute checks on the unit. ? 4.? Encourage individual, group and milieu therapy 5. Consider rechecking thyroid laboratory studies to rule out thyroid disorder for this presentation. Involuntary Hold Information 96 Hour Hold: 96 Hour Involuntary Admission: Yes 96 Hour Hold Ending Date: 06/13/24 96 Hour Hold Ending Time: 09:30 Other Hold: Hold End Date: 06/13/24 Attestations NPU Medical Necessity Statement*: Inpatient hospitalization is medically necessary and the clinically appropriate intervention at this time. We we will monitor/initiate medications and make changes as indicated. The patient's likely length of stay is 5 to 7 days. Coding Level of Care Code Acute Code for [facility] Fwd Diagnoses Bipolar disorder F31.9 Current bipolar episode type: depressed Current episode severity: severe Psychotic features: unspecified Acute psychosis F23 Claribel F30.9 Thyroid disorder E07.9
[2024-06-11] MEDS: lurasidone 80 mg Tablet 40 MG PO (17:35)
[2024-06-11 20:24] VITALS: BP 118/81; PULSE 97; RESP 16; TEMP 36.4; O2SAT 99
[2024-06-11] MEDS: trazodone 50 mg Tablet PO (22:05)
[2024-06-12 06:00] VITALS: BP 113/71; PULSE 89; RESP 16; TEMP 36.8; O2SAT 98
[2024-06-12] MEDS: levothyroxine 88 mcg Tablet PO (06:08)
[2024-06-12] MEDS: lamoTRIgine 25 mg Tablet 50 MG PO (08:08)
[2024-06-12 14:00] VITALS: BP 99/59; PULSE 86; RESP 16; TEMP 36.9; O2SAT 98
--- NOTE | 2024-06-12 15:57 | P.NPUPN_ITS ---
Subjective NPU 2 Subjective: Patient is a 34-year-old white female with bipolar disorder type I most recent episode depressed admitted with psychosis. Patient remained confused on the unit. She had intimated that she had felt that she had been receiving messages in her mind suggesting that others may be trying to harm her. She had periods of intense confusion and remained tearful and continued to ask the telegraphic typewriter installer what she needed to do in order to become normal again. The patient had admitted to having been stable without medicine for an unspecified period of time despite a previous diagnosis of claribel but reported that her moods have been much worse in the absence of taking her medications. Staff notes the patient appeared to be quite suspicious of others intent and the patient continued report having problems with remembering specific details. Mental Status Exam 2 MSE Comments: This is an overweight versus obese, white female in hospital scrubs with limit grooming and eye contact. No abnormal movements except for psychomotor agitation. She was cooperative with exam in moderate to extreme distress. Speech was productive with some increase in latency and continued decrease in productivity. Mood was described as anxious. Affect was tearful today and mood congruent. Thought process was more linear but superficial. Thought content: Patient denied suicidal or homicidal ideation. She continued to be responding to internal stimuli although she denied any auditory or visual hallucinations. Attention and concentration as well as memory were impaired and not formally tested. She was alert and oriented to person and place. Insight, judgment and impulse control were all impaired. Vitals/I&O/Wt Last Vital Signs Temp 98.4 F 06/12/24 14:00 Pulse 86 06/12/24 14:00 Resp 16 06/12/24 14:00 BP 99/59 06/12/24 14:00 Pulse Ox 98 06/12/24 14:00 O2 Del Method Room Air 06/12/24 14:00 Data NPU 06/07/24 09:37 06/07/24 09:37 A&P Assessment and plan (1) Bipolar disorder: Qualifiers: Current bipolar episode type: depressed Current episode severity: s evere Psychotic features: unspecified (2) Acute psychosis: (3) Claribel: (4) Thyroid disorder: Plan This is a 34-year-old female admitted with a known history of bipolar disorder from past treatment including an inpatient hospitalization 16 months ago presents only on an SSRI with reported psychosis, likely claribel and limited ability to communicate with a negative UDS or alcohol. 1.? Continue latuda 40mg at 6PM. Trial of lamotrigine 50mg daily to target bipolar depression. 2. ? We will attempt to gather collateral information from previous providers and family. 3. ? TO-15 minute checks on the unit. ? 4.? Encourage individual, group and milieu therapy 5. Consider rechecking thyroid laboratory studies to rule out thyroid disorder for this presentation. 21 day hold filed today. Involuntary Hold Information 2 96 Hour Hold: 96 Hour Involuntary Admission: Yes 96 Hour Hold Ending Date: 06/13/24 96 Hour Hold Ending Time: 09:30 Other Hold: Hold End Date: 06/13/24 Attestations NPU 2 Medical Necessity Statement*: Inpatient hospitalization is medically necessary and the clinically appropriate intervention at this time. We we will monitor/initiate medications and make changes as indicated. The patient's likely length of stay is 5 to 7 days. Coding Level of Care Code Acute Code for [facility] Fwd Diagnoses Bipolar disorder F31.9 Current bipolar episode type: depressed Current episode severity: severe Psychotic features: unspecified Acute psychosis F23 Claribel F30.9 Thyroid disorder E07.9
[2024-06-12] MEDS: lurasidone 80 mg Tablet 40 MG PO (17:28)
[2024-06-12 19:45] VITALS: BP 111/74; PULSE 99; RESP 20; TEMP 36.5; O2SAT 98
[2024-06-13 06:00] VITALS: BP 101/64; PULSE 85; RESP 14; TEMP 36.7; O2SAT 97
[2024-06-13] MEDS: levothyroxine 88 mcg Tablet PO (06:22)
[2024-06-13] MEDS: lamoTRIgine 25 mg Tablet 50 MG PO (09:15)
[2024-06-13 14:00] VITALS: BP 113/76; PULSE 86; RESP 16; TEMP 36.6; O2SAT 100
--- NOTE | 2024-06-13 14:26 | P.NPUPN_ITS ---
Subjective NPU 2 Subjective: Patient is a 34-year-old white female with bipolar disorder type I most recent episode depressed admitted with psychosis. Patient remained tearful on the unit. She reported that she wanted to know what to do to help her get better. Patient had been compliant with her medication regimen. She continued to remain somewhat guarded on the milieu. She had reported feeling overwhelmed. She had described significant stressors in the home. She had denied any thoughts of hurting herself or others. Mental Status Exam 2 MSE Comments: This is an overweight versus obese, white female in hospital scrubs with limit grooming and eye contact. No abnormal movements except for psychomotor retardation today. She was cooperative with exam in moderate to extreme distress. Speech was productive with some increase in latency and continued decrease in productivity. Mood was described as anxious. Affect was tearful today and mood congruent. Thought process was more linear but superficial. Thought content: Patient denied suicidal or homicidal ideation. She continued to be responding to internal stimuli although she denied any auditory or visual hallucinations. Attention and concentration as well as memory were impaired and not formally tested. She was alert and oriented to person and place. Insight, judgment and impulse control were all impaired. Vitals/I&O/Wt Last Vital Signs Temp 98.1 F 06/13/24 06:00 Pulse 85 06/13/24 06:00 Resp 14 06/13/24 06:00 BP 101/64 06/13/24 06:00 Pulse Ox 97 06/13/24 06:00 O2 Del Method Room Air 06/13/24 06:00 Data NPU 06/07/24 09:37 06/07/24 09:37 A&P Assessment and plan (1) Bipolar disorder: Qualifiers: Current bipolar episode type: depressed Current episode severity: s evere Psychotic features: unspecified (2) Acute psychosis: (3) Claribel: (4) Thyroid disorder: Plan This is a 34-year-old female admitted with a known history of bipolar disorder from past treatment including an inpatient hospitalization 16 months ago presents only on an SSRI with reported psychosis, likely claribel and limited ability to communicate with a negative UDS or alcohol. 1.? Continue latuda 40mg at 6PM. Continue lamotrigine 50mg daily to target bipolar depression. 2. ? We will attempt to gather collateral information from previous providers and family. 3. ? TO-15 minute checks on the unit. ? 4.? Encourage individual, group and milieu therapy 5. Consider rechecking thyroid laboratory studies to rule out thyroid disorder for this presentation. 21 day hold filed today. Involuntary Hold Information 2 96 Hour Hold: 96 Hour Involuntary Admission: Yes 96 Hour Hold Ending Date: 06/13/24 96 Hour Hold Ending Time: 09:30 Other Hold: Hold End Date: 06/13/24 Attestations NPU 2 Medical Necessity Statement*: Inpatient hospitalization is medically necessary and the clinically appropriate intervention at this time. We we will monitor/initiate medications and make changes as indicated. The patient's likely length of stay is 5 to 7 days. Coding Level of Care Code Acute Code for Chg Fwd Diagnoses Bipolar disorder F31.9 Current bipolar episode type: depressed Current episode severity: severe Psychotic features: unspecified Acute psychosis F23 Claribel F30.9 Thyroid disorder E07.9
[2024-06-13] MEDS: lurasidone 80 mg Tablet 40 MG PO (17:52)
[2024-06-13 20:06] VITALS: BP 126/83; PULSE 83; RESP 18; TEMP 36.4; O2SAT 98
[2024-06-14 06:00] VITALS: BP 112/80; PULSE 96; RESP 16; TEMP 36.7; O2SAT 100
[2024-06-14] MEDS: levothyroxine 88 mcg Tablet PO (06:02)
[2024-06-14] MEDS: lamoTRIgine 25 mg Tablet 50 MG PO (09:27)
[2024-06-14 13:29] VITALS: BP 103/77; PULSE 94; RESP 16; TEMP 36.6; O2SAT 100
--- NOTE | 2024-06-14 15:14 | P.NPUPN_ITS ---
Subjective NPU 2 Subjective: Patient is a 34-year-old white female with bipolar disorder type I most recent episode depressed admitted with psychosis. Patient had appeared more interactive on the milieu. She had reported having less distraction from her thoughts. She had discussed with the health technical writer this note about the utility of [employer] testing to help with medication consideration. The patient had reported some improvement in sleep. She had expressed interest in learning about dietary modifications to help with her bipolar disorder. Patient had denied having as many racing thoughts. She had still reported some feelings of sadness but stated that her thoughts were clear. Mental Status Exam 2 MSE Comments: This is an overweight versus obese, white female in hospital scrubs with limit grooming and eye contact. No abnormal movements except for mild psychomotor retardation today. She was cooperative with exam in less distress today. Speech was productive with less prominent latency noted and normal volume. Mood was described as okay. Affect was restricted in range. Thought process was more linear and logical. Thought content: Patient denied suicidal or homicidal ideation. She did not appear to be responding to internal stimuli. Attention and concentration as well as memory appeared better. She was alert and oriented to person and place. Insight was improving. Her judgment was improving. Her impulse control appeared poor. Vitals/I&O/Wt Last Vital Signs Temp 98 F 06/14/24 13:29 Pulse 94 06/14/24 13:29 Resp 16 06/14/24 13:29 BP 103/77 06/14/24 13:29 Pulse Ox 100 06/14/24 13:29 O2 Del Method Room Air 06/14/24 13:29 Data NPU 06/07/24 09:37 06/07/24 09:37 A&P Assessment and plan (1) Bipolar disorder: Qualifiers: Current bipolar episode type: depressed Current episode severity: s evere Psychotic features: unspecified (2) Acute psychosis: (3) Claribel: (4) Thyroid disorder: Plan This is a 34-year-old female admitted with a known history of bipolar disorder from past treatment including an inpatient hospitalization 16 months ago presents only on an SSRI with reported psychosis, likely claribel and limited ability to communicate with a negative UDS or alcohol. 1.? Continue latuda 40mg at 6PM. Continue lamotrigine 50mg daily to target bipolar depression. 2. ? We will attempt to gather collateral information from previous providers and family. 3. ? TO-15 minute checks on the unit. ? 4.? Encourage individual, group and milieu therapy 5. Consider rechecking thyroid laboratory studies to rule out thyroid disorder for this presentation. 21 day hold filed with hearing scheduled on 06/17/24. Involuntary Hold Information 2 96 Hour Hold: 96 Hour Involuntary Admission: Yes 96 Hour Hold Ending Date: 06/13/24 96 Hour Hold Ending Time: 09:30 Other Hold: Hold End Date: 06/13/24 Attestations NPU 2 Medical Necessity Statement*: Inpatient hospitalization is medically necessary and the clinically appropriate intervention at this time. We we will monitor/initiate medications and make changes as indicated. The patient's likely length of stay is 5 to 7 days. Coding Level of Care Code Acute Code for Chg Fwd Diagnoses Bipolar disorder F31.9 Current bipolar episode type: depressed Current episode severity: severe Psychotic features: unspecified Acute psychosis F23 Claribel F30.9 Thyroid disorder E07.9
[2024-06-14] MEDS: lurasidone 80 mg Tablet 40 MG PO (17:57)
[2024-06-14 19:49] VITALS: BP 109/73; PULSE 76; RESP 18; TEMP 36.6; O2SAT 97
[2024-06-14] MEDS: trazodone 50 mg Tablet PO (22:45)
[2024-06-15 06:00] VITALS: BP 113/66; PULSE 95; RESP 16; TEMP 36.8; O2SAT 95
[2024-06-15] MEDS: levothyroxine 88 mcg Tablet PO (06:09)
[2024-06-15] MEDS: lamoTRIgine 25 mg Tablet 50 MG PO (09:06)
--- NOTE | 2024-06-15 12:37 | P.NPUPN_ITS ---
Subjective NPU 2 Subjective: Patient is a 34-year-old white female with bipolar disorder type I most recent episode depressed admitted with psychosis. Patient had endorsed some depressed mood. She had reported that her thoughts appeared to be more clear. She had reported to having a good visit from her parents yesterday. She had continued to express anxiety about knowing how to best treat her bipolar disorder. She had expressed considerable worry about her children being affected with bipolar disorder when they grew up. She had reported being able to attend groups and stated that she was hopeful to return home in the next few days. The patient had reported feeling more clear and did not endorse any racing thoughts or any manic symptoms here. Mental Status Exam 2 MSE Comments: This is an overweight versus obese, white female in hospital scrubs with limit grooming and eye contact. No abnormal movements except for mild psychomotor retardation today. She was cooperative with exam in less distress today. Speech was productive with normal volume and no increase in speech latency noted. Mood was described as okay. Affect was restricted in range. Thought process was more linear and logical. Thought content: Patient denied suicidal or homicidal ideation. She did not appear to be responding to internal stimuli. Attention and concentration as well as memory appeared better. She was alert and oriented to person and place. Insight was improving. Her judgment was improving. Her impulse control appeared to be improving. Vitals/I&O/Wt Last Vital Signs Temp 98.2 F 06/15/24 06:00 Pulse 95 06/15/24 06:00 Resp 16 06/15/24 06:00 BP 113/66 06/15/24 06:00 Pulse Ox 95 06/15/24 06:00 O2 Del Method Room Air 06/14/24 13:29 Data NPU 06/07/24 09:37 06/07/24 09:37 A&P Assessment and plan (1) Bipolar disorder: Qualifiers: Current bipolar episode type: depressed Current episode severity: s evere Psychotic features: unspecified (2) Acute psychosis: (3) Claribel: (4) Thyroid disorder: Plan This is a 34-year-old female admitted with a known history of bipolar disorder from past treatment including an inpatient hospitalization 16 months ago presents only on an SSRI with reported psychosis, likely claribel and limited ability to communicate with a negative UDS or alcohol. 1.? Increase Latuda to 60mg at 6PM. Continue lamotrigine 50mg daily to target bipolar depression. 2. ? We will attempt to gather collateral information from previous providers and family. 3. ? TO-15 minute checks on the unit. ? 4.? Encourage individual, group and milieu therapy 5. Consider rechecking thyroid laboratory studies to rule out thyroid disorder for this presentation. 21 day hold filed with hearing scheduled on 06/17/24. Involuntary Hold Information 2 96 Hour Hold: 96 Hour Involuntary Admission: Yes 96 Hour Hold Ending Date: 06/13/24 96 Hour Hold Ending Time: 09:30 Other Hold: Hold End Date: 06/13/24 Attestations NPU 2 Medical Necessity Statement*: Inpatient hospitalization is medically necessary and the clinically appropriate intervention at this time. We we will monitor/initiate medications and make changes as indicated. The patient's likely length of stay is 2-3 days. Coding Level of Care Code Acute Code for Chg Fwd Diagnoses Bipolar disorder F31.9 Current bipolar episode type: depressed Current episode severity: severe Psychotic features: unspecified Acute psychosis F23 Claribel F30.9 Thyroid disorder E07.9
[2024-06-15 14:00] VITALS: BP 115/86; PULSE 85; RESP 16; O2SAT 98
[2024-06-15] MEDS: lurasidone 20 mg Tablet 60 MG PO (17:48)
[2024-06-15 19:55] VITALS: BP 115/66; PULSE 75; RESP 18; TEMP 36.3; O2SAT 100
[2024-06-16 06:00] VITALS: BP 114/77; PULSE 94; RESP 17; TEMP 36.7; O2SAT 93
[2024-06-16] MEDS: levothyroxine 88 mcg Tablet PO (06:43)
[2024-06-16] MEDS: lamoTRIgine 25 mg Tablet 50 MG PO (09:49)
--- NOTE | 2024-06-16 13:15 | P.NPUPN_ITS ---
Subjective NPU 2 Subjective: Patient is a 34-year-old white female with bipolar disorder type I most recent episode depressed admitted with psychosis. Patient reported that she was feeling better. She reported no worsening mood and stated that she was not feeling hopeless. She had reported that her thoughts had been clear. The patient had continued to express some worry about being able to execute and complete tasks at home that were necessary. Mental Status Exam 2 MSE Comments: This is an overweight versus obese, white female in hospital scrubs with limit grooming and eye contact. No abnormal movements except for mild psychomotor retardation today. She was cooperative with exam in less distress today. Speech was productive with normal volume and no increase in speech latency noted. Mood was described as better. Affect was brighter. Thought process was more linear and logical. Thought content: Patient denied suicidal or homicidal ideation. She did not appear to be responding to internal stimuli. Attention and concentration as well as memory appeared better. She was alert and oriented to person and place. Insight was improving. Her judgment was improving. Her impulse control appeared to be improving. Vitals/I&O/Wt Last Vital Signs Temp 98.0 F 06/16/24 06:00 Pulse 94 06/16/24 06:00 Resp 17 06/16/24 06:00 BP 114/77 06/16/24 06:00 Pulse Ox 93 06/16/24 06:00 O2 Del Method Room Air 06/15/24 14:00 Weight last 48 hrs Weight 87.362 kg Data NPU 06/07/24 09:37 06/07/24 09:37 A&P Assessment and plan (1) Bipolar disorder: Qualifiers: Current bipolar episode type: depressed Current episode severity: s evere Psychotic features: unspecified (2) Acute psychosis: (3) Claribel: (4) Thyroid disorder: Plan This is a 34-year-old female admitted with a known history of bipolar disorder from past treatment including an inpatient hospitalization 16 months ago presents only on an SSRI with reported psychosis, likely claribel and limited ability to communicate with a negative UDS or alcohol. 1.? Continue Latuda to 60mg at 6PM. Continue lamotrigine 50mg daily to target bipolar depression. 2. ? We will attempt to gather collateral information from previous providers and family. 3. ? TO-15 minute checks on the unit. ? 4.? Encourage individual, group and milieu therapy 5. Consider rechecking thyroid laboratory studies to rule out thyroid disorder for this presentation. 21 day hold filed with hearing scheduled on 06/17/24. Involuntary Hold Information 2 96 Hour Hold: 96 Hour Involuntary Admission: Yes 96 Hour Hold Ending Date: 06/13/24 96 Hour Hold Ending Time: 09:30 Other Hold: Hold End Date: 06/13/24 Attestations NPU 2 Medical Necessity Statement*: Inpatient hospitalization is medically necessary and the clinically appropriate intervention at this time. We we will monitor/initiate medications and make changes as indicated. The patient's likely length of stay is 2-3 days. Coding Level of Care Code Acute Code for Chg Fwd Diagnoses Bipolar disorder F31.9 Current bipolar episode type: depressed Current episode severity: severe Psychotic features: unspecified Acute psychosis F23 Claribel F30.9 Thyroid disorder E07.9
[2024-06-16 14:00] VITALS: BP 98/67; PULSE 88; RESP 16; TEMP 36.6; O2SAT 100
[2024-06-16] MEDS: lurasidone 20 mg Tablet 60 MG PO (17:39)
[2024-06-16 20:13] VITALS: BP 106/61; PULSE 89; RESP 18; TEMP 36.6; O2SAT 99
[2024-06-17] MEDS: levothyroxine 88 mcg Tablet PO (05:48)
[2024-06-17 06:00] VITALS: BP 109/72; PULSE 94; RESP 17; TEMP 36.8; O2SAT 98
[2024-06-17] MEDS: lamoTRIgine 25 mg Tablet 50 MG PO (09:04)
[2024-06-17 14:00] VITALS: BP 100/63; PULSE 88; RESP 16; TEMP 36.3; O2SAT 98
--- NOTE | 2024-06-17 14:06 | P.NPUDS_ITS ---
Diagnoses at Discharge Discharge Diagnosis (1) Bipolar disorder: Status: Acute Qualifiers: Current bipolar episode type: depressed Current episode severity: severe Psychotic features: unspecified (2) Acute psychosis: Status: Acute (3) Barrett: Status: Acute (4) Thyroid disorder: Status: Acute Reason for Visit Reason for Visit: MHE Brief History: History of Present Illness Latesha Elkins is a 34 year old female who presented to the emergency department with the following report: Chief Complaint: Psychiatric Symptoms Stated Complaint: MHE Time Seen by Provider: 06/07/24 09:17 Source: patient and family () Mode of arrival: ambulatory Limitations: no limitations History of Present Illness: Patient is a 34-year-old female presents to ED today along with her for mental health evaluation. According to the , patient has been very paranoid at home over the past several days and talking about very elaborate conspiracy theories. She feels like people are after her. Upon arrival to the ER today, she is extremely paranoid. She feels like we are giving her medical information to other people. She is hesitant to provide a history and seems very and untrustful of medical staff. Her thoughts are illogical. states she has a history of Bipolar. MD complaint: altered mental status Onset (ago): day(s) Duration: constant History of same: No Relieving factors: none Exacerbating factors: none Associated psychiatric symptoms: delusions Associated symptoms: Reports delusions; Deny auditory hallucinations, visual hallucinations, depression, homicidal ideation or suicidal ideation Treatments prior to arrival: none She was admitted to the neuropsychiatric unit for definitive treatment of those issues. She is known to [facility] psychiatry only through inpatient psychiatric care from about 16 months ago. An excerpt of her discharge summary is included below for context and history especially given her significant psychosis on presentation. She presents today continuing to have no useable information for the interview. At the time that we were communicating she was receiving medication due to her being out of control. She was seen about 16 months ago and was discharged on Seroquel XR and Depakote as mood stabilizer/antipsychotic medication and she presented taking no mood stabilizers or antipsychotics with Zoloft 50 mg as her only second medication. I tried to discuss with her the danger in giving an SSRI to a person with bipolar disorder without a mood stabilizer or antipsychotic board but it did not appear she understood. She had no findings of positive substances in her UDS, and staff report continued bizarre behavior, aimless behavior, intense emotionality without any clear cause and this was also noted on direct observation. The discussed that we would reach out to her supports to get her information and discontinue the Zoloft and recommend Abilify as a mood stabilizer/antipsychotic. Discussed that Dr. Pedro had seen her in her last visit and would be here tomorrow to continue her care. Her her 01/29/2023 [facility] inpatient psychiatric discharge summary: Discharge Diagnosis (1) Bipolar disorder: Status: Acute Qualifiers: Current bipolar episode type: depressed Current episode severity: severe Psychotic features: unspecified (2) Depression: Status: Acute Reason for Visit Reason for Visit: mhe Brief History: [facility] NPU History of Present Illness Latesha Elkins is a 32 year old female with a history of type I bipolar disorder diagnosed 12 years ago who reports that she has been feeling more depressed for several months. She endorses that this is her third hospitalization for depression in the last 4 months. She reports that she has felt like her depression is getting worse. She reports low motivation and reports feeling excessively tired. She reports an increase sense of hopelessness and stated that she did not mind if she was . She reports that there has been no recent problems with barrett since her hospitalization in August 2021 for a manic episode. She does report that she had been hospitalized in September 2022 at [facility] and had been prescribed Risperdal doses of 6 mg/day with the patient reporting feeling excessively sedated. She reports that she had lower that medication down to 4 mg a day but continues to report feeling excessively tired. She had reported that she has had an extended history of medication trials for managing her manic episodes. She reports no history of mixed mood symptoms. She endorses having frequent cycling with episodes of depression or barrett occurring at least once every 3 months. She reports that she has been more tearful and states that she has been more forgetful and struggling with concentration. She had reported that she had been terrified at the possibility that her 2-year-old son had accidentally taken a pill that she thought she had left out in the home. She reports having some problems with managing reality stating that she sometimes has unusual thoughts when she is depressed as well as at times when she is manic. Her manic symptoms historically have consisted of periods of either irritability or depression with decreased need for sleep and racing thoughts. She denies any drug or alcohol abuse. Inpatient psychiatric history: She reports at least 7-8 psychiatric hospitalizations beginning at the age of 20 initially diagnosed with depression but later confirmed to have bipolar 1 disorder with a past history of overdose on medications with most recent hospitalization in September 2022 at [facility]. Outpatient psychiatric history: She reports that she sees a Dr. TIFF Damon. She reports previous medication trials include Jose Corraluda lithium Wellbutrin olanzapine and Prozac. Current psychiatric medications: Risperdal 2 mg 3 times a day, Depakote 500 mg twice a day, Celexa 40 mg daily, Synthroid 88 mcg daily Medical history: Hypothyroidism Surgical history: 2 C-sections Allergies: Penicillin Legal history: None Drug and alcohol history: None actively, she had reported occasional alcohol use but denies any history of alcohol dependence with no history of withdrawal symptoms. Family psychiatric history maternal history of depression and maternal grandmother have been diagnosed with bipolar disorder Social history: Patient was born in [place] and raised in an intact family. She reported no educational difficulties and graduated high school while attending college. She denied any history of mood disorders and no history of sexual physical or emotional abuse reported during childhood or adulthood. 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 She has 2 children ages 4 and 2. 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 She reports good social supports. Hospital Course During the hospitalization, the patient had routine laboratory studies which were within normal limits except for a few outliers. Additionally, there was a general medical evaluation which was also within normal limits and revealed no new acute processes. At the time of discharge, lethality was denied and psychosis was resolving. Mood and anxiety were well managed. The patient endorsed a plan to avoid all drugs of abuse and follow up with the aftercare recommendations of the treatment team. The patient was evaluated and deemed to be absent credible lethality and had achieved the maximum benefit from an inpatient hospitalization, and so was discharged. Risperidone was tapered and discontinued. Seroquel xr was titrated up to a dose of 200mg at night and patient reported excess sedation and this was reduced to 150mg xr prior to discharge. Patient showed improvement in energy and concentration prior to discharge. Her depakote level was drawn on day of discharge and was 71.2, Liver function tests were within normal limits as well as her CBC on discharge. Hospital Course Hospital Course During the hospitalization, the patient had routine laboratory studies which were within normal limits except for a few outliers.? Additionally, there was a general medical evaluation which was also within normal limits and revealed no new acute processes.? At the time of discharge, lethality was denied and psychosis was resolving.? Mood and anxiety were well managed.? The patient appeared quite psychotic. Her antidepressant was discontinued. She had stated that she had been off of Depakote for several weeks. The patient had initially been started on Invega but was switched to Latuda to target bipolar depression and psychosis. There was gradual improvement as this medication was titrated up to a dose of 60mg at dinnertime with no side effects. Lamotrigine was initiated to target bipolar depression at as well at 50 mg daily to be increased after 14 days on this medication. The patient endorsed a plan to avoid all drugs of abuse and follow up with the aftercare recommendations of the treatment team.? The patient was evaluated and deemed to be absent credible lethality and had achieved the maximum benefit from an inpatient hospitalization, and so was discharged. ? Involuntary Hold Information 96 Hour Hold: 96 Hour Involuntary Admission: Yes 96 Hour Hold Ending Date: 06/13/24 96 Hour Hold Ending Time: 09:30 Other Hold: Hold End Date: 06/13/24 Mental Status Exam MSE Comments: This is an overweight versus obese, white female in hospital scrubs with limit grooming and eye contact. No abnormal movements except for mild psychomotor retardation today. She was cooperative with exam in less distress today. Speech was productive with normal volume and no increase in speech latency noted. Mood was described as better. Affect was brighter. Thought process was more linear and logical. Thought content: Patient denied suicidal or faviola icidal ideation. She did not appear to be responding to internal stimuli. Attention and concentration as well as memory appeared better. She was alert and oriented to person and place. Insight was improving. Her judgment was improving. Her impulse control appeared to be improving. Discharge Data Studies Completed and Pending: Laboratory Results WBC 7.15 10^3/uL (3.2 9-11.43) 06/07/24 09:37 RBC 4.70 10^6/uL (3.8 5-5.65) 06/07/24 09:37 Hgb 14.00 g/dL (11.27 -16.99) 06/07/24 09:37 Hct 42.6 % (36-47) 06/07/24 09:37 MCV 90.6 fl (85-98) 06/07/24 09:37 MCH 29.8 pg (27-33) 06/07/24 09:37 MCHC 32.9 g/dL (30-55) 06/07/24 09:37 RDW 13.1 % (12.1-15.1 ) 06/07/24 09:37 Plt Count 326 10^3/cmm (157 -399) 06/07/24 09:37 MPV 9.6 fL (7.4-10.4) 06/07/24 09:37 Neut % (Auto) 71.7 % 06/07/24 09:37 Lymph % (Auto) 18.2 % 06/07/24 09:37 [place] % (Auto) 8.8 % 06/07/24 09:37 Eos % (Auto) 0.6 % 06/07/24 09:37 Baso % (Auto) 0.6 % 06/07/24 09:37 Neut # (Auto) 5.13 10^3/uL (1.8 -7.7) 06/07/24 09:37 Lymph # (Auto) 1.3 10^3/uL (0.8- 4.8) 06/07/24 09:37 [place] # (Auto) 0.6 10^3/uL (0.2- 0.9) 06/07/24 09:37 Eos # (Auto) 0.0 10^3/uL (0.0- 0.8) 06/07/24 09:37 Baso # (Auto) 0.0 10^3/uL (0.0- 0.1) 06/07/24 09:37 Nucleated RBC % (a uto) 0 % 06/07/24 09:37 Nucleated RBCs # 0.0 /100WBC 06/07/24 09:37 Sodium 136 mmol/L (136-1 45) 06/07/24 09:37 Potassium 4.1 mmol/L (3.5-5 .1) 06/07/24 09:37 Chloride 103 mmol/L (98-10 7) 06/07/24 09:37 Carbon Dioxide 22 mmol/L (22-29) 06/07/24 09:37 Anion Gap 15.1 (5-19) 06/07/24 09:37 BUN 11 mg/dL (6-20) 06/07/24 09:37 Creatinine 0.6 mg/dL (0.5-0. 9) 06/07/24 09:37 GFR Calculation 113.1 mL/min (90- 130) 06/07/24 09:37 Glucose 104 mg/dL (65-115 ) 06/07/24 09:37 Calculated Osmolal ity 282 mOsm/kg (285- 295) L 06/07/24 09:37 Calcium 8.5 mg/dL (8.5-10 .5) 06/07/24 09:37 Total Bilirubin 0.3 mg/dL (0.15-1 .2) 06/07/24 09:37 AST 16 U/L (0-32) 06/07/24 09:37 ALT 10 U/L (0-33) 06/07/24 09:37 Alkaline Phosphata se 76 U/L (35-105) 06/07/24 09:37 Total Protein 7.2 g/dL (6.6-8.7 ) 06/07/24 09:37 Albumin 4.5 g/dL (3.5-5.2 ) 06/07/24 09:37 Globulin 2.7 g/dL (1.3-4.6 ) 06/07/24 09:37 TSH 8.07 uIU/mL (0.27 -4.20) H 06/07/24 09:37 HCG, Qual Negative (Negati ve) 06/07/24 09:37 Salicylates < 0.3 mg/dL (3-10 ) L 06/07/24 09:37 Urine Opiates Scre en Negative ng/mL (N egative) 06/07/24 Unknown Acetaminophen < 5.0 ug/mL (10-3 0) L 06/07/24 09:37 Ur Barbiturates Sc reen Negative ng/mL (N egative) 06/07/24 Unknown Ur Phencyclidine S crn Negative ng/mL (N egative) 06/07/24 Unknown Ur Amphetamines Sc reen Negative ng/mL (N egative) 06/07/24 Unknown U Benzodiazepines Scrn Negative ng/mL (N egative) 06/07/24 Unknown Urine Cocaine Scre en Negative ng/mL (N egative) 06/07/24 Unknown U Marijuana (THC) Screen Negative ng/mL (N egative) 06/07/24 Unknown Ethyl Alcohol < 10 mg/dL (0-10) 06/07/24 09:37 Vitals: Last Vital Signs Temp 98.2 F 06/17/24 06:00 Pulse 94 06/17/24 06:00 Resp 17 06/17/24 06:00 BP 109/72 06/17/24 06:00 Pulse Ox 98 06/17/24 06:00 O2 Del Method Room Air 06/16/24 14:00 Discharge Plan Discharge Patient Disposition: Home Condition: Stable Prescriptions: New lurasidone 60 mg tablet 60 mg PO 1800 30 Days Qty: 30 1RF Rx Instructions: take with dinner. lamotrigine 100 mg tablet 50 mg PO DAILY 10 Days Qty: 5 0RF Rx Instructions: Take 1/2 tablet daily x 10 days lamotrigine 100 mg tablet extended release 24hr 100 mg PO DAILY Qty: 30 1RF Rx Instructions: Begin on 06/27/24 after completion of previous Lamotrigine script. Continued levothyroxine 88 mcg tablet 88 mcg PO QAM Discontinued quetiapine 25 mg tablet 25 - 75 mg PO BEDTIME sertraline 50 mg tablet 50 mg PO QAM Discharge Orders: Discharge Order (Routine); Ordered 06/17/24 Ordered By: Biju Pedro Referrals: KEVIN Aggarwal [Other] - 4-7 days (Office is closed the June 17. A message was left with the office to call you for a follow up. If you do not get a call next week then call them with the number above.) [facility]CK[facility] RENTERIA [Other] (Contact [facility] with the number provided for any discharge needs. You can even get a dietary consult if needed.) Thomas Sapp FNP [Primary Care Provider] - 06/26/24 1:30 pm Discharge Diet: Usual diet Discharge Activity: Resume usual activity Patient Instructions: Levothyroxine (By mouth), Lamotrigine (By mouth), Lurasidone (By mouth), Mood Disorders (DC), Bipolar Disorder (DC), Help Prevent Suicide (DC), Opioid Safety Discharge Attestations NPU Time Spent in Discharge Care*: less than 30 min Specific Discharge Activities: Specific discharge activities: educating patient, discussing with case consultant/social workers/dc planners and documenting/other paperwork Coding Level of Care Code Acute Code for Chg Fwd Diagnoses Bipolar disorder F31.9 Current bipolar episode type: depressed Current episode severity: severe Psychotic features: unspecified Acute psychosis F23 Barrett F30.9 Thyroid disorder E07.9
[2024-06-17 14:15] VITALS: BP 109/78; PULSE 94; RESP 16; TEMP 36.6; O2SAT 98
== END 2024-06-17 15:15 | disposition home or self-care (01) | DRG 885 ==
LOC: ER 11:55 → NP 13:44
PROVIDERS: Admitting Provider Psychiatry & Neurology Psychiatry; Emergency Provider Physician Assistant; PCP Nurse Practitioner; Visit Provider Psychiatry & Neurology Psychiatry
DX: F31.5 Bipolar disorder, current episode depressed, severe, with psychotic features (principal); E66.9 Obesity, unspecified; Z68.32 Body mass index [BMI] 32.0-32.9, adult; T43.596A Underdosing of other antipsychotics and neuroleptics, initial encounter; T43.216A Underdosing of selective serotonin and norepinephrine reuptake inhibitors, initial encounter; Z91.128 Patient's intentional underdosing of medication regimen for other reason; E07.9 Disorder of thyroid, unspecified
CPT/HCPCS: 80053; 80306; 80307; 84443; 84703; 85025; 96372; 97150; 97165; 99285; J2060; J3486

== ENCOUNTER 2024-07-29 18:22 | Inpatient (IN) | payer OTHER, SELFPAY ==
[2024-07-29 18:38] VITALS: BP 129/70; PULSE 76; RESP 16; TEMP 36.7; O2SAT 99; BMI 33.7
--- NOTE | 2024-07-29 19:06 | ED.C_ITS ---
HPI - Psych 2 General: Chief Complaint: Psychiatric Symptoms Stated Complaint: mhe Time Seen by Provider: 07/29/24 18:48 Source: patient and family () Mode of arrival: ambulatory Limitations: no limitations History of Present Illness: Patient is a 34-year-old female with past medical history of bipolar depression who presents to the emergency department for mental health evaluation. Patient was admitted to the neuropsychiatric unit on 06/08, where she was diagnosed with a manic episode. At that time was having illogical beliefs and thoughts of paranoia, was discharged on Latuda as well as lamotrigine, and takes levothyroxine for her thyroid. She had her antidepressant stopped at that time. Per patient and present, patient was doing well through the holidays up until 48 hours ago when patient began having paranoia again. Patient states I think that a I has taken over and are trying to get my kids in the drugs. She also comments I done a lot of bad things and I think people are out to get me. 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 Patient states she lives in the community where she thinks everyone knows everything about me now and what I have done and we will try to put me in nursing home. Patient does not endorse any thoughts of suicidal ideations or homicidal ideations, but does state that she thinks everyone in her community is watching her. states that prior to coming to the emergency department, patient seemed to have a meltdown involving their 2 young children and this severely concerned them for her own wellbeing. Patient does not think she wants admitted because we will record everything about her but also states that she does not feel safe at home and has not slept for the past 2 days. She states that she stays up having premonitions about the future. Patient does not make eye contact at any point during the exam, becomes very tearful at multiple points. complaint: other (Mental health evaluation/paranoia) Onset (ago): day(s) Duration: constant History of same: Yes Context: new medication(s) and other (Recent psychiatric hospitalization) Associated symptoms: Reports depression; Deny homicidal ideation or suicidal ideation Related Data Home Medications Medication Instructions Recorded Confirmed levothyroxine 88 mcg tablet 88 mcg PO QAM 06/07/24 06/07/24 Previous Rx's Medication Instructions Recorded lamotrigine 100 mg tablet,extended 100 mg PO DAILY #30 tabs 06/17/24 release 24 hr lurasidone 60 mg tablet 60 mg PO 1800 30 days #30 tabs 06/17/24 Allergies Allergy/AdvReac Type Severity Reaction Status Date / Time Penicillins Allergy ALGY-Rash Verified 07/29/24 18:45 Review of Systems 2 General: Reports: 10 or more systems reviewed and unremarkable except in HPI and below Const: Denies: fever(s), chills or fatigue Eyes: Denies: change in vision ENMT: Denies: throat pain, ear or mastoid pain or nasal discharge Card: Denies: chest pain, palpitations, swelling of feet/ankles or lightheadedness Resp: Denies: dyspnea, productive cough or wheezing GI: Denies: abdominal pain, nausea, vomiting, diarrhea or constipation : Denies: flank pain, difficulty voiding, dysuria or urinary frequency Musc: Denies: neck pain, back pain or joint pain Skin/Breast: Denies: rash Neuro: Denies: headache(s), numbness in extremities or weakness in extremities Psych: Reports: anxiety, depression and paranoia; Denies: suicidal ideation or homicidal ideation [facility] ED 2 Female Reproductive History: Date of last menstrual period: 07/28/24 Physical Exam 2 Const: COMMON NORMALS: no acute distress, patient oriented x3 and no limitations GENERAL APPEARANCE: cooperative, comfortable and well developed ORIENTATION/CONSCIOUSNESS: Yes awake, Yes oriented to person, Yes oriented to place and Yes oriented to time HENMT: COMMON NORMALS: normocephalic, atraumatic and hearing grossly normal bilaterally HEAD & SCALP: normocephalic and atraumatic Eye: COMMON NORMALS: Equal, round and reactive pupils present, EOMs intact bilaterally and conjunctivae normal CONJUNCTIVA: Yes conjunctivae normal P UPIL: Yes Equal, round and reactive pupils present Neck/C-Spine: COMMON NORMALS: full ROM, supple and no JVD Resp: COMMON NORMALS: normal respiratory effort, No retractions, No use of accessory muscles and clear to auscultation bilaterally AUSCULTATION: clear to auscultation bilaterally Cardio: COMMON NORMALS: no JVD, regular rate, regular rhythm, No clicks present (Cardio), No murmurs present (Cardio) and No rub (Cardio) RATE: r egular rate RHYTHM: regular rhythm Extremity: COMMON NORMALS: normal to inspection, full ROM and capillary refill normal Neuro: COMMON NORMALS: patient oriented x3, CN's II-XII intact bilaterally, moves all extremities, no focal motor deficits and no sensory deficits noted SENSORIUM/ORIENTATION: Yes oriented to person, Yes oriented to place and Yes oriented to time Psych: APPEARANCE: Yes grossly normal ATTITUDE: Yes paranoid A CTIVITY/MOTOR BEHAVIOR: Yes Avoids eye contact (attititude/behavior) SPEECH: Yes minimal and Yes soft MOOD & AFFECT: Yes depressed mood, Yes tearful and Yes fearful THOUGHT PROCESS: Illogical thought process present THOUGHT CONTENT: No Suicidality present, No Homicidality present and No Hallucination(s) present ATTENTION/CONCENTRATION: Yes attention grossly intact M GERBER/COGNITION: Yes memory grossly intact Skin: COMMON NORMALS: no rashes or lesions noted GENERAL SKIN EXAM: no rashes or lesions noted Course 2 Vital Signs: Vital signs: Vital Signs Temperature 98.0 F 07/29/24 18:38 Pulse Rate 76 07/29/24 18:38 Respiratory Rate 16 07/29/24 18:38 Blood Pressure 129/70 07/29/24 18:38 Pulse Oximetry 99 07/29/24 18:38 Oxygen Delivery Me thod Room Air 07/29/24 18:38 MDM - Psych Medical Decision Making Patient history of bipolar, presenting with signs and symptoms of a manic episode. Cleared medically, excepted to neuropsychiatric unit by Dr. Blanco. Dr. Morse putting in admit orders at this time. Lab Data 07/29/24 19:21 07/29/24 19:21 Laboratory Results WBC 9.88 10^3/uL (3.29-11.43) 07/29/24 19:21 RBC 4.68 10^6/uL (3.85-5.65) 07/29/24 19:21 Hgb 13.80 g/dL (11.27-16.99) 07/29/24 19:21 Hct 42.1 % (36-47) 07/29/24 19:21 MCV 90.0 fl (85-98) 07/29/24 19:21 MCH 29.5 pg (27-33) 07/29/24 19:21 MCHC 32.8 g/dL (30-55) 07/29/24 19:21 RDW 13.3 % (12.1-15.1) 07/29/24 19:21 Plt Count 331 10^3/cmm (157-399) 07/29/24 19:21 MPV 9.4 fL (7.4-10.4) 07/29/24 19:21 Neut % (Auto) 68.8 % 07/29/24 19:21 Lymph % (Auto) 23.1 % 07/29/24 19:21 [place] % (Auto) 6.6 % 07/29/24 19:21 Eos % (Auto) 0.7 % 07/29/24 19:21 Baso % (Auto) 0.5 % 07/29/24 19:21 Neut # (Auto) 6.80 10^3/uL (1.8-7.7) 07/29/24 19:21 Lymph # (Auto) 2.3 10^3/uL (0.8-4.8) 07/29/24 19:21 [place] # (Auto) 0.7 10^3/uL (0.2-0.9) 07/29/24 19:21 Eos # (Auto) 0.1 10^3/uL (0.0-0.8) 07/29/24 19:21 Baso # (Auto) 0.1 10^3/uL (0.0-0.1) 07/29/24 19:21 Nucleated RBC % (auto) 0 % 07/29/24 19:21 Nucleated RBCs # 0.0 /100WBC 07/29/24 19:21 Sodium 138 mmol/L (136-145) 07/29/24 19:21 Potassium 4.5 mmol/L (3.5-5.1) 07/29/24 19:21 Chloride 102 mmol/L (98-107) 07/29/24 19:21 Carbon Dioxide 25 mmol/L (22-29) 07/29/24 19:21 Anion Gap 15.5 (5-19) 07/29/24 19:21 BUN 11 mg/dL (6-20) 07/29/24 19:21 Creatinine 0.7 mg/dL (0.5-0.9) 07/29/24 19:21 GFR Calculation 94.7 mL/min (90-130) 07/29/24 19:21 Glucose 91 mg/dL (65-115) 07/29/24 19:21 Calculated Osmolality 285 mOsm/kg (285-295) 07/29/24 19:21 Calcium 9.5 mg/dL (8.5-10.5) 07/29/24 19:21 Total Bilirubin 0.3 mg/dL (0.15-1.2) 07/29/24 19:21 AST 17 U/L (0-32) 07/29/24 19:21 ALT 13 U/L (0-33) 07/29/24 19:21 Alkaline Phosphatase 73 U/L (35-105) 07/29/24 19:21 Total Protein 8.0 g/dL (6.6-8.7) 07/29/24 19:21 Albumin 4.7 g/dL (3.5-5.2) 07/29/24 19:21 Globulin 3.3 g/dL (1.3-4.6) 07/29/24 19:21 TSH 4.24 uIU/mL (0.27-4.20) H 07/29/24 19:21 HCG, Qual Negative (Negative) 07/29/24 19:21 Salicylates 1.4 mg/dL (3-10) L 07/29/24 19:21 Acetaminophen < 5.0 ug/mL (10-30) L 07/29/24 19:21 Ethyl Alcohol < 10 mg/dL (0-10) 07/29/24 19:21 No radiology studies performed this visit Discharge Plan Discharge Patient Disposition: Admitted As Inpatient Clinical Impression: Bipolar disorder Qualifiers: Active/Remission status: currently active Current bipolar episode type: manic C urrent episode severity: severe Psychotic features: with psychotic features Q ualified Code(s): F31.2 - Bipolar disorder, current episode manic severe with psychotic features Condition: Stable Coding Level of Care Code ED Knockout Machine Operator for Lemuel Vidal
[2024-07-29 19:28] LABS: Basophils # 0.1 10^3/uL (0.0-0.1); Basophils % 0.5 %; Eosinophils # 0.1 10^3/uL (0.0-0.8); Eosinophils % 0.7 %; Hematocrit 42.1 % (36-47); Lymphocytes # 2.3 10^3/uL (0.8-4.8); Lymphocytes % 23.1 %; Mean Corpuscular HGB Conc 32.8 g/dL (30-55); Mean Corpuscular Hemoglobin 29.5 pg (27-33); Mean Platelet Volume 9.4 fL (7.4-10.4); Monocytes # 0.7 10^3/uL (0.2-0.9); Monocytes % 6.6 %; Neutrophils % 68.8 %; Nucleated Red Blood Cells % 0 %; Platelet Count 331 10^3/cmm (157-399); Red Blood Count 4.68 10^6/uL (3.85-5.65); Red Cell Distribution Width 13.3 % (12.1-15.1); White Blood Count 9.88 10^3/uL (3.29-11.43)
[2024-07-29 19:40] LABS: HCG, Serum Qual Negative (Negative)
[2024-07-29 19:56] LABS: Alanine Aminotransferase 13 U/L (0-33); Albumin Level 4.7 g/dL (3.5-5.2); Alkaline Phosphatase 73 U/L (35-105); Anion Gap 15.5 (5-19); Aspartate Amino Transferase 17 U/L (0-32); Blood Urea Nitrogen 11 mg/dL (6-20); Calcium 9.5 mg/dL (8.5-10.5); Carbon Dioxide 25 mmol/L (22-29); Chloride 102 mmol/L (98-107); Globulin 3.3 g/dL (1.3-4.6); Glomerular Filtration Rate 94.7 mL/min (90-130); Glucose 91 mg/dL (65-115); Osmolality Calculated 285 mOsm/kg (285-295); Potassium 4.5 mmol/L (3.5-5.1); Salicylate 1.4 mg/dL (3-10); Sodium 138 mmol/L (136-145); Thyroid Stimulating Hormone 4.24 uIU/mL (0.27-4.20); Total Bilirubin 0.3 mg/dL (0.15-1.2)
[2024-07-29 20:01] LABS: Acetaminophen < 5.0 ug/mL (10-30); Alcohol Level < 10 mg/dL (0-10)
[2024-07-29 20:28] LABS: Amphetamines Screen Urine Negative (Negative); Barbiturates Screen Urine Negative (Negative); Benzodiazepines Screen Urine Negative (Negative); Cocaine Screen Urine Negative (Negative); Opiate Screen Urine Negative (Negative); PCP Screen Urine Negative (Negative); THC Screen Urine Negative (Negative)
--- NOTE | 2024-07-29 21:15 | PC.NURSE ---
Pt belongings inventoried with [facility] (Security). Belonging inventory sheet in chart.
[2024-07-29 23:08] VITALS: BP 112/73; PULSE 85; O2SAT 96
[2024-07-29] MEDS: LORazepam 1 mg Tablet PO (23:30)
--- NOTE | 2024-07-30 00:03 | PC.NURSE ---
96 HH Pt served with copy of 96 HH by this RN and security. Pt A&O, pt states concern of and children. I just have a bad feeling something had happened. Pt voiced questions regarding 72 hour holds vs 96 hour hold. Pt educated on 96 HH. Primary RN notified. Primary RN stated she had tried calling twice with no answer.
--- NOTE | 2024-07-30 01:30 | XRR_ITS ---
PROCEDURE INFORMATION: Exam: XR Chest Exam date and time: 07/30/2024 1:34 AM Age: 34 years old Clinical indication: Screening exam; Other screening; Additional info: Psych transfer TECHNIQUE: Imaging protocol: Radiologic exam of the chest. Views: 1 view. COMPARISON: No relevant prior studies available. FINDINGS: Lungs: Unremarkable. No consolidation. Pleural spaces: Unremarkable. No pleural effusion. No pneumothorax. Heart/Mediastinum: Unremarkable. No cardiomegaly. Bones/joints: Unremarkable. XR/XR chest 1V portable [id number] IMPRESSION: No acute findings.
--- NOTE | 2024-07-30 01:50 | ECG_ITS ---
[facility] Test Date: 2024-07-30 Pat Name: Latesha Elkins Department: Room: Gender: Female Charge Aide: : 1990 Requested By: Vijay Jensen Order Number: [id number] Devaughn MD: Hayden Flynn M.D. Measurements Intervals [place] Rate: 69 P: 38 IA: 153 QRS: 72 QRSD: 81 T: 39 QT: 382 QTc: 412 Interpretive Statements SINUS RHYTHM LOW QRS VOLTAGE IN PRECORDIAL LEADS [QRS DEFLECTION < 1.0 mV IN CHEST LEADS] No previous ECG available for comparison Electronically Signed On 07-30-2024 21:15:35 [employer] by Hayden Flynn M.D. [email or web address]
[2024-07-30 03:48] LABS: Adenovirus Not Detected (NOT DETECT); Chlamydia Pneumoniae Not Detected (NOT DETECT); Coronavirus 229E,HKU1,NL63,OC4 Not Detected (NOT DETECT); Human Metapneumovirus Not Detected (NOT DETECT); Human Rhinovirus/Enterovirus Not Detected (NOT DETECT); Influenza A Not Detected (NOT DETECT); Influenza A H1 Not Detected (NOT DETECT); Influenza A H1-2009 Not Detected (NOT DETECT); Influenza A H3 Not Detected (NOT DETECT); Influenza B Not Detected (NOT DETECT); Mycoplasma Pneumoniae Not Detected (NOT DETECT); Parainfluenza Virus Type 1 Not Detected (NOT DETECT); Parainfluenza Virus Type 2 Not Detected (NOT DETECT); Parainfluenza Virus Type 3 Not Detected (NOT DETECT); Parainfluenza Virus Type 4 Not Detected (NOT DETECT); Respiratory Syncytial Virus A Not Detected (NOT DETECT); Respiratory Syncytial Virus B Not Detected (NOT DETECT); SARS-COV-2 Not Detected (NOT DETECT)
[2024-07-30 06:00] VITALS: BP 115/77; PULSE 89; RESP 16; O2SAT 98
[2024-07-30] MEDS: levothyroxine 88 mcg Tablet PO (06:47)
[2024-07-30 09:29] LABS: Bilirubin Urine Negative (Negative); Blood Urine 3+ (Negative); Glucose Urine UA Negative (Normal); Ketones Urine Negative (Negative); Leukocyte Esterase Urine 1+ (Negative); Nitrate Urine Negative (Negative); Protein Urine 1+ (Negative); Specific Gravity, Urine 1.024 (1.005-1.030); Urine Appearance Clear (CLEAR); Urine Color Yellow (Yellow); pH Urine >=9.0 (5-7)
[2024-07-30 09:31] LABS: Add Urine Microscopic? YES; Bacteria Urine None Seen /hpf; Hyaline Casts Urine 0-4 /lpf; WBC Urine 0-5 /hpf (0-5)
[2024-07-30] MEDS: lamoTRIgine 100 mg Tablet PO (09:58)
[2024-07-30 10:11] LABS: UA Slide Review UA Slide Review Perf
[2024-07-30 10:12] LABS: Add Urine Culture? Yes
[2024-07-30 15:00] VITALS: PULSE 76; O2SAT 99
--- NOTE | 2024-07-30 18:20 | PC.NURSE ---
PT CALM RESTING IN BED TODAY. PT BEHAVIOR APPROPRIATE.
[2024-07-30 18:53] VITALS: BP 115/77; PULSE 76; RESP 16; TEMP 36.7; O2SAT 98
[2024-07-30 20:11] VITALS: BP 120/72; PULSE 88; RESP 18; TEMP 36.4; O2SAT 97
[2024-07-30] MEDS: trazodone 50 mg Tablet PO (22:40)
[2024-07-30] MEDS: OLANZapine 5 mg ODT PO (22:40)
[2024-07-31] MEDS: levothyroxine 88 mcg Tablet PO (05:56)
[2024-07-31 06:15] VITALS: BP 105/66; PULSE 98; RESP 16; TEMP 36.8; O2SAT 93
--- NOTE | 2024-07-31 07:00 | P.NPUHP_ITS ---
Providers/Chief Complaint 2 Admitting Physician: Charly Blanco MD Primary Care Provider: SANTOSH Robert Chief Complaint: mhe HPI NPU History of Present Illness Latesha Elkins is a 34 year old female who presented to the emergency department following report: Chief Complaint: Psychiatric Symptoms Stated Complaint: mhe Time Seen by Provider: 07/29/24 18:48 Source: patient and family () Mode of arrival: ambulatory Limitations: no limitations History of Present Illness: Patient is a 34-year-old female with past medical history of bipolar depression who presents to the emergency department for mental health evaluation. Patient was admitted to the neuropsychiatric unit on 06/08, where she was diagnosed with a manic episode. At that time was having illogical beliefs and thoughts of paranoia, was discharged on Latuda as well as lamotrigine, and takes levothyroxine for her thyroid. She had her antidepressant stopped at that time. Per patient and present, patient was doing well through the holidays up until 48 hours ago when patient began having paranoia again. Patient states I think that a I has taken over and are trying to get my kids in the drugs. She also comments I done a lot of bad things and I think people are out to get me. 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 Patient states she lives in the community where she thinks everyone knows everything about me now and what I have done and we will try to put me [facility] [place] [facility]. Patient does not endorse any thoughts of suicidal ideations or homicidal ideations, but does state that she thinks everyone in her community is watching her. states that prior to coming to the emergency department, patient seemed to have a meltdown involving their 2 young children and this severely concerned them for her own wellbeing. Patient does not think she wants admitted because we will record everything about her but also states that she does not feel safe at home and has not slept for the past 2 days. She states that she stays up having premonitions about the future. Patient does not make eye contact at any point during the exam, becomes very tearful at multiple points. complaint: other (Mental health evaluation/paranoia) Onset (ago): day(s) Duration: constant History of same: Yes Context: new medication(s) and other (Recent psychiatric hospitalization) Associated symptoms: Reports depression; Deny homicidal ideation or suicidal ideation She was admitted to the neuropsychiatric unit for definitive treatment of those issues. She presented much like she has in the past with some confusion and psychomotor acting which was somewhat aimless and seeming quite fearful and worried about what her might think or what other people might think about her situation. She denied having stopped her medication and then only missing 1 dose. We discussed the risks, benefits and alternatives of restarting her medications and identifying appropriate increases as indicated. She was very rude to the idea obtain medications. An excerpt of her last inpatient stay is included below for context and the fact there have been no substantive changes. Per her 06/17/2024 [facility] inpatient psychiatric discharge summary: Diagnoses at Discharge Discharge Diagnosis (1) Bipolar disorder: Status: Acute Qualifiers: Current bipolar episode type: depressed Current episode severity: severe Psychotic features: unspecified (2) Acute psychosis: Status: Acute (3) Barrett: Status: Acute (4) Thyroid disorder: Status: Acute Reason for Visit Reason for Visit: MHE Brief History: History of Present Illness Latesha Elkins is a 34 year old female who presented to the emergency department with the following report: Chief Complaint: Psychiatric Symptoms Stated Complaint: MHE Time Seen by Provider: 06/07/24 09:17 Source: patient and family () Mode of arrival: ambulatory Limitations: no limitations History of Present Illness: Patient is a 34-year-old female presents to ED today along with her for mental health evaluation. According to the , patient has been very paranoid at home over the past several days and talking about very elaborate conspiracy theories. She feels like people are after her. Upon arrival to the ER today, she is extremely paranoid. She feels like we are giving her medical information to other people. She is hesitant to provide a history and seems very and untrustful of medical staff. Her thoughts are illogical. states she has a history of Bipolar. MD complaint: altered mental status Onset (ago): day(s) Duration: constant History of same: No Relieving factors: none Exacerbating factors: none Associated psychiatric symptoms: delusions Associated symptoms: Reports delusions; Deny auditory hallucinations, visual hallucinations, depression, homicidal ideation or suicidal ideation Treatments prior to arrival: none She was admitted to the neuropsychiatric unit for definitive treatment of those issues. She is known to [facility] psychiatry only through inpatient psychiatric care from about 16 months ago. An excerpt of her discharge summary is included below for context and history especially given her significant psychosis on presentation. She presents today continuing to have no useable information for the interview. At the time that we were communicating she was receiving medication due to her being out of control. She was seen about 16 months ago and was discharged on Seroquel XR and Depakote as mood stabilizer/antipsychotic medication and she presented taking no mood stabilizers or antipsychotics with Zoloft 50 mg as her only second medication. I tried to discuss with her the danger in giving an SSRI to a person with bipolar disorder without a mood stabilizer or antipsychotic board but it did not appear she understood. She had no findings of positive substances in her UDS, and staff report continued bizarre behavior, aimless behavior, intense emotionality without any clear cause and this was also noted on direct observation. The discussed that we would reach out to her supports to get her information and discontinue the Zoloft and recommend Abilify as a mood stabilizer/antipsychotic. Discussed that Dr. Pedro had seen her in her last visit and would be here tomorrow to continue her care. Her her 01/29/2023 [facility] inpatient psychiatric discharge summary: Discharge Diagnosis (1) Bipolar disorder: Status: Acute Qualifiers: Current bipolar episode type: depressed Current episode severity: severe Psychotic features: unspecified (2) Depression: Status: Acute Reason for Visit Reason for Visit: mhe Brief History: [facility] NPU History of Present Illness Latesha Elkins is a 32 year old female with a history of type I bipolar disorder diagnosed 12 years ago who reports that she has been feeling more depressed for several months. She endorses that this is her third hospitalization for depression in the last 4 months. She reports that she has felt like her depression is getting worse. She reports low motivation and reports feeling excessively tired. She reports an increase sense of hopelessness and stated that she did not mind if she was . She reports that there has been no recent problems with barrett since her hospitalization in August 2021 for a manic episode. She does report that she had been hospitalized in September 2022 at [facility] and had been prescribed Risperdal doses of 6 mg/day with the patient reporting feeling excessively sedated. She reports that she had lower that medication down to 4 mg a day but continues to report feeling excessively tired. She had reported that she has had an extended history of medication trials for managing her manic episodes. She reports no history of mixed mood symptoms. She endorses having frequent cycling with episodes of depression or barrett occurring at least once every 3 months. She reports that she has been more tearful and states that she has been more forgetful and struggling with concentration. She had reported that she had been terrified at the possibility that her 2-year-old son had accidentally taken a pill that she thought she had left out in the home. She reports having some problems with managing reality stating that she sometimes has unusual thoughts when she is depressed as well as at times when she is manic. Her manic symptoms historically have consisted of periods of either irritability or depression with decreased need for sleep and racing thoughts. She denies any drug or alcohol abuse. Inpatient psychiatric history: She reports at least 7-8 psychiatric hospitalizations beginning at the age of 20 initially diagnosed with depression but later confirmed to have bipolar 1 disorder with a past history of overdose on medications with most recent hospitalization in September 2022 at [facility]. Outpatient psychiatric history: She reports that she sees a Dr. TIFF Damon. She reports previous medication trials include Jose Benz lithium Wellbutrin olanzapine and Prozac. Current psychiatric medications: Risperdal 2 mg 3 times a day, Depakote 500 mg twice a day, Celexa 40 mg daily, Synthroid 88 mcg daily Medical history: Hypothyroidism Surgical history: 2 C-sections Allergies: Penicillin Legal history: None Drug and alcohol history: None actively, she had reported occasional alcohol use but denies any history of alcohol dependence with no history of withdrawal symptoms. Family psychiatric history maternal history of depression and maternal grandmother have been diagnosed with bipolar disorder Social history: Patient was born in [place] and raised in an intact family. She reported no educational difficulties and graduated high school while attending college. She denied any history of mood disorders and no history of sexual physical or emotional abuse reported during childhood or adulthood. 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 She has 2 children ages 4 and 2. 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 She reports good social supports. Hospital Course During the hospitalization, the patient had routine laboratory studies which were within normal limits except for a few outliers. Additionally, there was a general medical evaluation which was also within normal limits and revealed no new acute processes. At the time of discharge, lethality was denied and psychosis was resolving. Mood and anxiety were well managed. The patient appeared quite psychotic. Her antidepressant was discontinued. She had stated that she had been off of Depakote for several weeks. The patient had initially been started on Invega but was switched to Latuda to target bipolar depression and psychosis. There was gradual improvement as this medication was titrated up to a dose of 60mg at dinnertime with no side effects. Lamotrigine was initiated to target bipolar depression at as well at 50 mg daily to be increased after 14 days on this medication. The patient endorsed a plan to avoid all drugs of abuse and follow up with the aftercare recommendations of the treatment team. The patient was evaluated and deemed to be absent credible lethality and had achieved the maximum benefit from an inpatient hospitalization, and so was discharged. Meds NPU Home Medications Medication Instructions Recorded Confirmed Last Taken Type levothyroxine 88 mcg tablet 88 mcg PO QAM 06/07/24 07/30/24 07/30/24 History lamotrigine 100 mg tablet,extended 100 mg PO DAILY #30 tabs 06/17/24 07/30/24 07/29/24 Rx release 24 hr lurasidone 60 mg tablet 60 mg PO 1800 30 days #30 tabs 06/17/24 07/30/24 07/28/24 Rx omega 0-oqx-lkl-fish oil 1,000 mg 1 cap PO DAILY 07/30/24 07/30/24 07/22/24 History (120 mg-180 mg) capsule (Fish Oil) Allergies Allergy/AdvReac Type Severity Reaction Status Date / Time Penicillins Allergy ALGY-Rash Verified 07/29/24 18:45 Mental Status Exam 2 MSE Comments: This is an overweight versus obese white female in hospital scrubs with limit grooming and eye contact. No abnormal movements except for psychomotor agitation. Cooperative with exam in moderate to extreme distress. Speech was limited and not generally responsive to questions but at times increased rate and volume some word salad Mood not described, affect guarded, fearful and agitated. Thought process was disorganized. Thought content: Patient did not respond to questions about lethality and did not have aggression towards herself or others but did have significant agitation, there were no delusions reported but paranoid, persecutory and bizarre delusions noted, she did not respond to questions about auditory or visual hallucinations but she did her to be attending to internal stimuli. Attention and concentration as well as memory were impaired and not formally tested. She was alert but not oriented other than self. Insight, judgment and impulse control were impaired. Vitals/I&O/Wt Last Vital Signs Temp 98.3 F 07/31/24 06:15 Pulse 98 07/31/24 06:15 Resp 16 07/31/24 06:15 BP 105/66 07/31/24 06:15 Pulse Ox 93 07/31/24 06:15 O2 Del Method Room Air 07/30/24 18:52 Weight last 48 hrs Weight 88.995 kg Data NPU 07/29/24 19:21 07/29/24 19:21 A&P Assessment and plan (1) Bipolar disorder: Qualifiers: Current bipolar episode type: depressed Current episode severity: s evere Psychotic features: unspecified (2) Acute psychosis: (3) Barrett: (4) Thyroid disorder: Plan This is a 34-year-old female admitted with a known history of bipolar disorder from past treatment including an inpatient hospitalization months ago presents with psychosis, likely barrett and limited ability to communicate with a negative UDS or alcohol. 1.? Restart current medication and make adjustments as indicated. 2. ?We will attempt to gather collateral information from previous providers and family. 3. ?TO-15 minute checks on the unit. ? 4.? Encourage individual, group and milieu therapy 5. Consider rechecking thyroid laboratory studies to rule out thyroid disorder for this presentation. Recheck u/a Involuntary Hold Information 2 96 Hour Hold: 96 Hour Involuntary Admission: Yes 96 Hour Hold Ending Date: 08/02/24 96 Hour Hold Ending Time: 22:36 Other Hold: Hold End Date: 06/13/24 Attestations NPU 2 Medical Necessity Statement*: Inpatient hospitalization is medically necessary and the clinically appropriate intervention at this time. We we will monitor/initiate medications and make changes as indicated. The patient is expected to be hospitalized for at least 2 midnights. The patient's likely length of stay is 5 to 7 days. Coding Level of Care Code Acute Code for Chg Fwd Diagnoses Bipolar disorder F31.9 Current bipolar episode type: depressed Current episode severity: severe Psychotic features: unspecified Acute psychosis F23 Barrett F30.9 Thyroid disorder E07.9
[2024-07-31] MEDS: lamoTRIgine 100 mg Tablet PO (09:31)
[2024-07-31 14:00] VITALS: BP 103/74; PULSE 89; RESP 16; TEMP 37; O2SAT 98
[2024-07-31] MEDS: lurasidone 20 mg Tablet 60 MG PO (18:57)
[2024-07-31 20:10] VITALS: BP 118/80; PULSE 100; RESP 16; O2SAT 99
[2024-08-01 06:15] VITALS: BP 105/65; PULSE 89; RESP 18; TEMP 36.9; O2SAT 100
[2024-08-01] MEDS: levothyroxine 88 mcg Tablet PO (06:34)
[2024-08-01] MEDS: lamoTRIgine 100 mg Tablet PO (08:39)
[2024-08-01 14:00] VITALS: BP 125/74; PULSE 68; RESP 16; TEMP 37; O2SAT 98
[2024-08-01] MEDS: lurasidone 20 mg Tablet 60 MG PO (17:30)
--- NOTE | 2024-08-01 18:07 | P.NPUPN_ITS ---
Subjective NPU 2 Subjective: Patient presented today reporting that things were going fine. She identified that there was a reasonable chance that she could go home and that she felt better. We discussed observation of her behavior and continued sense of claribel. We discussed the risks, benefits and alternatives of increasing the Lamictal and Latuda she understood and agreed to proceed as is documented in this note. She denied any side effects to medication. Mental Status Exam 2 MSE Comments: This is an overweight versus obese white female in hospital scrubs with limit grooming and eye contact. No abnormal movements except for psychomotor agitation, at 1 point patient was marching in place for 5 or 10 minutes in front of the door. Cooperative with exam in moderate to extreme distress. Speech was limited and not generally responsive to questions but at times increased rate and volume some word salad Mood not described, affect guarded, fearful and agitated. Thought process was disorganized. Thought content: Patient did not respond to questions about lethality and did not have aggression towards herself or others but did have significant agitation, there were no delusions reported but paranoid, persecutory and bizarre delusions noted, she did not respond to questions about auditory or visual hallucinations but she did her to be attending to internal stimuli. Attention and concentration as well as memory were impaired and not formally tested. She was alert but not oriented other than self. Insight, judgment and impulse control were impaired. Vitals/I&O/Wt Last Vital Signs Temp 98.6 F 08/01/24 14:00 Pulse 68 08/01/24 14:00 Resp 16 08/01/24 14:00 BP 125/74 08/01/24 14:00 Pulse Ox 98 08/01/24 14:00 O2 Del Method Room Air 08/01/24 14:00 Data NPU 07/29/24 19:21 07/29/24 19:21 Micro: Microbiology 07/30/24 08:58 Urine Culture - Final Urine,Clean Catch Microbiology 07/30/24 08:58 Urine,Clean Catch Urine Culture - Final A&P Assessment and plan (1) Bipolar disorder: Qualifiers: Current bipolar episode type: depressed Current episode severity: s evere Psychotic features: unspecified (2) Acute psychosis: (3) Claribel: (4) Thyroid disorder: Plan This is a 34-year-old female admitted with a known history of bipolar disorder from past treatment including an inpatient hospitalization months ago presents with psychosis, likely claribel and limited ability to communicate with a negative UDS or alcohol. 1.? Restart current medication and make adjustments as indicated. Increase Lamictal to 150 mg p.o. daily with advising patient about the risk for Garcia- Kg syndrome and rash and increase Latuda to 80 mg p.o. q. evening. 2. ?We will attempt to gather collateral information from previous providers and family. 3. ?TO-15 minute checks on the unit. ? 4.? Encourage individual, group and milieu therapy 5. Consider rechecking thyroid laboratory studies to rule out thyroid disorder for this presentation. Recheck u/a Involuntary Hold Information 2 96 Hour Hold: 96 Hour Involuntary Admission: Yes 96 Hour Hold Ending Date: 08/02/24 96 Hour Hold Ending Time: 22:36 Other Hold: Hold End Date: 08/02/24 Attestations NPU 2 Medical Necessity Statement*: Inpatient hospitalization is medically necessary and the clinically appropriate intervention at this time. We we will monitor/initiate medications and make changes as indicated. The patient's likely length of stay is 5 to 7 days. Coding Level of Care Code Acute Code for Chg Fwd Diagnoses Bipolar disorder F31.9 Current bipolar episode type: depressed Current episode severity: severe Psychotic features: unspecified Acute psychosis F23 Claribel F30.9 Thyroid disorder E07.9
[2024-08-01 20:56] VITALS: BP 110/61; PULSE 96; RESP 18; TEMP 36.7; O2SAT 98
[2024-08-02] MEDS: levothyroxine 88 mcg Tablet PO (06:06)
[2024-08-02 06:15] VITALS: BP 117/78; PULSE 100; RESP 18; TEMP 36.5; O2SAT 98
[2024-08-02] MEDS: lamoTRIgine 100 mg Tablet 150 MG PO (08:49)
[2024-08-02 14:00] VITALS: BP 108/69; PULSE 96; RESP 16; TEMP 36.6; O2SAT 98
--- NOTE | 2024-08-02 17:18 | P.NPUPN_ITS ---
Subjective NPU 2 Subjective: Patient presented today reporting that things are going pretty good. She continued to ask questions now that she was thinking more clearly about things moving forward. We started discussing diagnosis and trying to identify whether her current presentation represented claribel or anxiety mixed with borderline personality traits. She denied any side effects to the medication. Mental Status Exam 2 MSE Comments: This is an overweight versus obese white female in hospital scrubs with improving grooming and eye contact. No abnormal movements except for resolving psychomotor agitation. Cooperative with exam in moderate to extreme distress. Speech was more normal rate and volume. Mood described as okay, affect guarded but less agitated. Thought process was more organized. Thought content: Patient did not respond to questions about lethality and did not have aggression towards herself or others but did have significant agitation, there were no delusions reported but paranoid, persecutory and bizarre delusions noted, she did not respond to questions about auditory or visual hallucinations but she did her to be attending to internal stimuli. Attention and concentration as well as memory were impaired and not formally tested. She was alert but not oriented other than self. Insight, judgment and impulse control were impaired. Vitals/I&O/Wt Last Vital Signs Temp 98 F 08/02/24 14:00 Pulse 96 08/02/24 14:00 Resp 16 08/02/24 14:00 BP 108/69 08/02/24 14:00 Pulse Ox 98 08/02/24 14:00 O2 Del Method Room Air 08/02/24 14:00 Data NPU 07/29/24 19:21 07/29/24 19:21 A&P Assessment and plan (1) Bipolar disorder: Qualifiers: Current bipolar episode type: depressed Current episode severity: s evere Psychotic features: unspecified (2) Acute psychosis: (3) Claribel: (4) Thyroid disorder: Plan This is a 34-year-old female admitted with a known history of bipolar disorder from past treatment including an inpatient hospitalization months ago presents with psychosis, likely claribel and limited ability to communicate with a negative UDS or alcohol. 1.? Restart current medication and make adjustments as indicated. Increased Lamictal to 150 mg p.o. daily with advising patient about the risk for Garcia- Kg syndrome and rash and increase Latuda to 80 mg p.o. q. evening. 2. ?We will attempt to gather collateral information from previous providers and family. 3. ?TO-15 minute checks on the unit. ? 4.? Encourage individual, group and milieu therapy 5. Consider rechecking thyroid laboratory studies to rule out thyroid disorder for this presentation. Recheck u/a. 6. Filed for 21-day hold. Involuntary Hold Information 2 96 Hour Hold: 96 Hour Involuntary Admission: Yes 96 Hour Hold Ending Date: 08/02/24 96 Hour Hold Ending Time: 22:36 Other Hold: Hold End Date: 08/02/24 Attestations NPU 2 Medical Necessity Statement*: Inpatient hospitalization is medically necessary and the clinically appropriate intervention at this time. We we will monitor/initiate medications and make changes as indicated. The patient's likely length of stay is 5 to 7 days. Coding Level of Care Code Acute Code for Chg Fwd Diagnoses Bipolar disorder F31.9 Current bipolar episode type: depressed Current episode severity: severe Psychotic features: unspecified Acute psychosis F23 Clairbel F30.9 Thyroid disorder E07.9
[2024-08-02] MEDS: lurasidone 80 mg Tablet PO (17:26)
[2024-08-02 22:00] VITALS: BP 115/82; PULSE 100; RESP 17; TEMP 36.5; O2SAT 97
--- NOTE | 2024-08-03 01:30 | PC.NURSE ---
Patient came to nurse station to ask the time of day, the day of the week, the date, and the weather. Patient wrote this information down. Denied anxiety or any pain. Patient also stated just laying in my room it is hard to keep track of the time .
[2024-08-03] MEDS: levothyroxine 88 mcg Tablet PO (05:59)
[2024-08-03 06:00] VITALS: BP 134/84; PULSE 90; RESP 16; TEMP 36.4; O2SAT 96
[2024-08-03] MEDS: lamoTRIgine 100 mg Tablet 150 MG PO (08:19)
--- NOTE | 2024-08-03 08:53 | P.NPUPN_ITS ---
Subjective NPU 2 Subjective: Patient presented today reporting she had been struggling with being able to accomplish stuff while at home. She reports that she essentially sits around and accomplish nothing. We discussed strategies to have appointments so that there was a time in place that 1 created expectations for ones behavior. She reports she felt that maybe the medication was helping. She denied any side effects to the medication. Mental Status Exam 2 MSE Comments: This is an overweight versus obese white female in hospital scrubs with improving grooming and eye contact. No abnormal movements except for mild psychomotor retardation. Cooperative with exam in mild to moderate distress. Speech was more normal rate and volume. Mood described as okay, affect guarded and slightly subdued. Thought process was more organized. Thought content: Patient did not respond to questions about lethality and did not have aggression towards herself or others but did have significant agitation, there were no delusions reported but paranoid, persecutory and bizarre delusions noted, she did not respond to questions about auditory or visual hallucinations but she did her to be attending to internal stimuli. Attention and concentration as well as memory were impaired and not formally tested. She was alert but not oriented other than self. Insight, judgment and impulse control were impaired. Vitals/I&O/Wt Last Vital Signs Temp 97.6 F 08/03/24 06:00 Pulse 90 08/03/24 06:00 Resp 16 08/03/24 06:00 BP 134/84 08/03/24 06:00 Pulse Ox 96 08/03/24 06:00 O2 Del Method Room Air 08/02/24 14:00 Data NPU 07/29/24 19:21 07/29/24 19:21 A&P Assessment and plan (1) Bipolar disorder: Qualifiers: Current bipolar episode type: depressed Current episode severity: s evere Psychotic features: unspecified (2) Acute psychosis: (3) Claribel: (4) Thyroid disorder: Plan This is a 34-year-old female admitted with a known history of bipolar disorder from past treatment including an inpatient hospitalization months ago presents with psychosis, likely claribel and limited ability to communicate with a negative UDS or alcohol. 1.? Restart current medication and make adjustments as indicated. Increased Lamictal to 150 mg p.o. daily with advising patient about the risk for Garcia- Kg syndrome and rash and increase Latuda to 80 mg p.o. q. evening. 2. ?We will attempt to gather collateral information from previous providers and family. 3. ?TO-15 minute checks on the unit. ? 4.? Encourage individual, group and milieu therapy 5. Consider rechecking thyroid laboratory studies to rule out thyroid disorder for this presentation. Recheck u/a. 6. Filed for 21-day hold. Involuntary Hold Information 2 96 Hour Hold: 96 Hour Involuntary Admission: Yes 96 Hour Hold Ending Date: 08/02/24 96 Hour Hold Ending Time: 22:36 Other Hold: Hold End Date: 08/02/24 Attestations NPU 2 Medical Necessity Statement*: Inpatient hospitalization is medically necessary and the clinically appropriate intervention at this time. We we will monitor/initiate medications and make changes as indicated. The patient's likely length of stay is 4-6 days. Coding Level of Care Code Acute Code for [facility] Fwd Diagnoses Bipolar disorder F31.9 Current bipolar episode type: depressed Current episode severity: severe Psychotic features: unspecified Acute psychosis F23 Claribel F30.9 Thyroid disorder E07.9
[2024-08-03 14:00] VITALS: BP 107/72; PULSE 80; RESP 16; TEMP 36.6; O2SAT 99
[2024-08-03] MEDS: lurasidone 80 mg Tablet PO (17:35)
[2024-08-03 22:00] VITALS: BP 97/68; PULSE 95; RESP 16; TEMP 36.6; O2SAT 96
[2024-08-04] MEDS: levothyroxine 88 mcg Tablet PO (05:55)
[2024-08-04 06:00] VITALS: BP 121/66; PULSE 99; RESP 18; O2SAT 98
--- NOTE | 2024-08-04 07:26 | P.NPUPN_ITS ---
Subjective NPU 2 Subjective: Patient presented today reporting that she doing all right. She reports that she is tolerating the increase in her medications and denied any significant side effects. She reports that she is struggling with her understanding of what aspect of her situation is bipolar disorder and what part of it is anxiety or personality disorder and how to manage that moving forward. We discussed the importance of her having a therapist and addressing these issues and outpatient therapy. We discussed that Dr. Pedro would be here tomorrow to manage her treatment and discharge moving forward. Mental Status Exam 2 MSE Comments: This is an overweight versus obese white female in hospital scrubs with improving grooming and eye contact. No abnormal movements except for mild psychomotor retardation. Cooperative with exam in mild distress. Speech was more normal rate and volume. Mood described as okay, affect guarded and slightly subdued. Thought process was more organized. Thought content: Patient did not respond to questions about lethality and did not have aggression towards herself or others but did have significant agitation, there were no delusions reported but paranoid, persecutory and bizarre delusions noted, she did not respond to questions about auditory or visual hallucinations but she did her to be attending to internal stimuli. Attention and concentration as well as memory were impaired and not formally tested. She was alert but not oriented other than self. Insight, judgment and impulse control were impaired. Vitals/I&O/Wt Last Vital Signs Temp 97.9 F 08/03/24 22:00 Pulse 99 08/04/24 06:00 Resp 18 08/04/24 06:00 BP 121/66 08/04/24 06:00 Pulse Ox 98 08/04/24 06:00 O2 Del Method Room Air 08/03/24 14:00 Weight last 48 hrs Weight 87.543 kg Data NPU 07/29/24 19:21 07/29/24 19:21 A&P Assessment and plan (1) Bipolar disorder: Qualifiers: Current bipolar episode type: depressed Current episode severity: s evere Psychotic features: unspecified (2) Acute psychosis: (3) Claribel: (4) Thyroid disorder: Plan This is a 34-year-old female admitted with a known history of bipolar disorder from past treatment including an inpatient hospitalization months ago presents with psychosis, likely claribel and limited ability to communicate with a negative UDS or alcohol. 1.? Restart current medication and make adjustments as indicated. Increased Lamictal to 150 mg p.o. daily with advising patient about the risk for Garcia- Kg syndrome and rash and increase Latuda to 80 mg p.o. q. evening. 2. ?We will attempt to gather collateral information from previous providers and family. 3. ?TO-15 minute checks on the unit. ? 4.? Encourage individual, group and milieu therapy 5. Consider rechecking thyroid laboratory studies to rule out thyroid disorder for this presentation. Recheck u/a. 6. Filed for 21-day hold. Involuntary Hold Information 2 96 Hour Hold: 96 Hour Involuntary Admission: Yes 96 Hour Hold Ending Date: 08/02/24 96 Hour Hold Ending Time: 22:36 Other Hold: Hold End Date: 08/02/24 Attestations NPU 2 Medical Necessity Statement*: Inpatient hospitalization is medically necessary and the clinically appropriate intervention at this time. We we will monitor/initiate medications and make changes as indicated. The patient's likely length of stay is 3-5 days. Coding Level of Care Code Acute Code for [facility] Diagnoses Bipolar disorder F31.9 Current bipolar episode type: depressed Current episode severity: severe Psychotic features: unspecified Acute psychosis F23 Clarbiel F30.9 Thyroid disorder E07.9
[2024-08-04] MEDS: lamoTRIgine 100 mg Tablet 150 MG PO (08:34)
[2024-08-04] MEDS: hyDROXYzine 25 mg Capsule 50 MG PO (13:50)
[2024-08-04] MEDS: OLANZapine 5 mg ODT PO (13:51)
[2024-08-04 14:00] VITALS: BP 113/67; PULSE 86; RESP 16; TEMP 36.8; O2SAT 98
[2024-08-04] MEDS: lurasidone 80 mg Tablet PO (17:38)
[2024-08-04 21:28] VITALS: BP 95/59; PULSE 107; RESP 18; TEMP 36.7; O2SAT 97
[2024-08-05 06:00] VITALS: BP 92/65; PULSE 89; RESP 16; TEMP 36.6; O2SAT 98
[2024-08-05] MEDS: levothyroxine 88 mcg Tablet PO (06:32)
[2024-08-05] MEDS: lamoTRIgine 100 mg Tablet 150 MG PO (07:56)
[2024-08-05 13:54] VITALS: BP 100/69; PULSE 99; RESP 16; TEMP 36.8; O2SAT 100
[2024-08-05] MEDS: lurasidone 80 mg Tablet PO (17:20)
--- NOTE | 2024-08-05 18:27 | P.NPUPN_ITS ---
Subjective NPU 2 Subjective: 34-year-old female admitted with history of bipolar disorder with psychosis. Patient continued to ruminate that her would leave her and that she would be homeless. She reported continued worries about the future. She reported that she had only missed 1 day of medication. She had reported that she continued to feel that she needed to take responsibility for her actions. She had continued to report that she felt that her previous problems with not taking care of herself would lead her to be in some unspecified trouble in the future. Patient was able to attend groups. She had reported that her worry remained out of control and reported having some difficulties with sleeping. She had admitted to having continued outpatient psychotherapy but stated that she had not made it to see her psychiatrist since her last time in the inpatient psychiatric facility. Mental Status Exam 2 MSE Comments: This is an overweight versus obese white female in hospital scrubs with improving grooming and eye contact. No abnormal movements except for mild psychomotor retardation. She was cooperative with exam in moderate distress. Speech was more normal rate and volume. Mood described as okay. Her affect was subdued. Thought process was more organized. Thought content: no Suicidal or homicidal ideation evoked. She did not appear to be responding to internal stimuli. Continued presence of delusions and ideas of reference. Attention and concentration as well as memory were impaired and not formally tested. She was alert and oriented x 3. Insight, judgment and impulse control were impaired. Vitals/I&O/Wt Last Vital Signs Temp 98.2 F 08/05/24 13:54 Pulse 99 08/05/24 13:54 Resp 16 08/05/24 13:54 BP 100/69 08/05/24 13:54 Pulse Ox 100 08/05/24 13:54 O2 Del Method Room Air 08/05/24 13:54 Weight last 48 hrs Weight 87.543 kg Data NPU 07/29/24 19:21 07/29/24 19:21 A&P Assessment and plan (1) Bipolar disorder: Qualifiers: Current bipolar episode type: depressed Current episode severity: s evere Psychotic features: unspecified (2) Acute psychosis: (3) Claribel: (4) Thyroid disorder: Plan This is a 34-year-old female admitted with a known history of bipolar disorder from past treatment including an inpatient hospitalization months ago presents with psychosis, likely claribel and limited ability to communicate with a negative UDS or alcohol. 1.? Restart current medication and make adjustments as indicated. Continue Lamictal at 150 mg p.o. daily with advising patient about the risk for Garcia- Kg syndrome and rash and Continue Latuda to 80 mg p.o. q. evening. 2. ?We will attempt to gather collateral information from previous providers and family. 3. ?TO-15 minute checks on the unit. ? 4.? Encourage individual, group and milieu therapy 5. Consider rechecking thyroid laboratory studies to rule out thyroid disorder for this presentation. Recheck u/a. 6. Filed for 21-day hold. Involuntary Hold Information 2 96 Hour Hold: 96 Hour Involuntary Admission: Yes 96 Hour Hold Ending Date: 08/02/24 96 Hour Hold Ending Time: 22:36 Other Hold: Hold End Date: 08/02/24 Attestations NPU 2 Medical Necessity Statement*: Inpatient hospitalization is medically necessary and the clinically appropriate intervention at this time. We we will monitor/initiate medications and make changes as indicated. The patient's likely length of stay is 3-5 days. Coding Level of Care Code Acute Code for [facility] Fwd Diagnoses Bipolar disorder F31.9 Current bipolar episode type: depressed Current episode severity: severe Psychotic features: unspecified Acute psychosis F23 Claribel F30.9 Thyroid disorder E07.9
[2024-08-05 20:51] VITALS: BP 128/85; PULSE 93; RESP 16; TEMP 36.4; O2SAT 96
[2024-08-06 06:15] VITALS: BP 119/85; PULSE 82; TEMP 36.6; O2SAT 97
[2024-08-06] MEDS: levothyroxine 88 mcg Tablet PO (06:20)
[2024-08-06] MEDS: lamoTRIgine 100 mg Tablet 150 MG PO (09:11)
[2024-08-06 14:00] VITALS: BP 131/22; PULSE 95; RESP 16; TEMP 36.8; O2SAT 98
--- NOTE | 2024-08-06 14:36 | PC.NURSE ---
clonazepam 0.5mg BID started per Dr. Pedro.
[2024-08-06] MEDS: CLONazepam 0.5 mg Tablet PO ×2 (16:17→20:18)
--- NOTE | 2024-08-06 17:41 | W.PM.NPUPNS ---
Subjective NPU Subjective: 34-year-old female admitted with history of bipolar disorder with psychosis. The patient had continued to appear extremely anxious but denied any racing thoughts. She had continued to endorse depression. She had reported feeling overwhelmed and continued to report a lack of motivation and drive to complete tasks. She had expressed continued problems with concentration. She was able to attend groups. She had continued to report that at times her anxiety and worries were out of control. She had reported some difficulties falling asleep. She had expressed desire to not take medications stating that she did not wish to become dependent on medications despite being informed that bipolar disorder did require medications in order to prevent recurrence of either claribel or depression. Mental Status Exam MSE Comments: This is an overweight versus obese white female in hospital scrubs with improving grooming and eye contact. No abnormal movements except for mild psychomotor retardation. She was cooperative with exam in moderate distress. Speech was more normal rate and volume. Mood described as okay. Her affect was subdued. Thought process was more organized. Thought content: no Suicidal or homicidal ideation evoked. She did not appear to be responding to internal stimuli. Continued presence of delusions and ideas of reference. Attention and concentration as well as memory were impaired and not formally tested. She was alert and oriented x 3. Insight, judgment and impulse control were impaired. Vitals/I&O/Wt Last Vital Signs Temp 98.2 F 08/06/24 14:00 Pulse 95 08/06/24 14:00 Resp 16 08/06/24 14:00 BP 131/22 08/06/24 14:00 Pulse Ox 98 08/06/24 14:00 O2 Del Method Room Air 08/06/24 14:00 08/06/24 08/06/24 08/06/24 06:59 14:59 22:59 Intake Total 240 / 240 Balance 240 / 240 Data NPU 07/29/24 19:21 07/29/24 19:21 A&P Assessment and plan (1) Bipolar disorder: Qualifiers: Current bipolar episode type: depressed Current episode severity: severe Psychotic features: unspecified (2) Acute psychosis: (3) Claribel: (4) Thyroid disorder: Plan This is a 34-year-old female admitted with a known history of bipolar disorder from past treatment including an inpatient hospitalization months ago presents with psychosis, likely claribel and limited ability to communicate with a negative UDS or alcohol. 1.? Continue Lamictal at 150 mg p.o. daily with advising patient about the risk for Garcia-Kg syndrome and rash and Continue Latuda to 80 mg p.o. q. evening. Add klonopin .5mg bid to target anxiety. 2. ?We will attempt to gather collateral information from previous providers and family. 3. ?TO-15 minute checks on the unit. ? 4.? Encourage individual, group and milieu therapy 5. Consider rechecking thyroid laboratory studies to rule out thyroid disorder for this presentation. Recheck u/a. 6. Filed for 21-day hold. Involuntary Hold Information 96 Hour Hold: 96 Hour Involuntary Admission: Yes 96 Hour Hold Ending Date: 08/02/24 96 Hour Hold Ending Time: 22:36 Attestations NPU Medical Necessity Statement*: Inpatient hospitalization is medically necessary and the clinically appropriate intervention at this time. We we will monitor/initiate medications and make changes as indicated. The patient's likely length of stay is 3-5 days. Coding Level of Care Code Acute Code for [facility] Fwd Diagnoses Bipolar disorder F31.9 Current bipolar episode type: depressed Current episode severity: severe Psychotic features: unspecified Acute psychosis F23 Claribel F30.9 Thyroid disorder E07.9
[2024-08-06] MEDS: lurasidone 80 mg Tablet PO (17:59)
[2024-08-06 19:56] VITALS: BP 102/79; PULSE 81; RESP 16; TEMP 36.6; O2SAT 98
[2024-08-07 06:00] VITALS: BP 119/80; PULSE 83; RESP 16; TEMP 36.7; O2SAT 98
[2024-08-07] MEDS: levothyroxine 88 mcg Tablet PO (06:22)
[2024-08-07] MEDS: lamoTRIgine 100 mg Tablet 150 MG PO (08:18)
[2024-08-07] MEDS: CLONazepam 0.5 mg Tablet PO ×2 (08:18→19:59)
[2024-08-07 14:00] VITALS: BP 100/67; PULSE 85; RESP 17; TEMP 36.4; O2SAT 100
--- NOTE | 2024-08-07 16:47 | P.NPUPN_ITS ---
Subjective NPU 2 Subjective: 34-year-old female admitted with history of bipolar disorder with psychosis. Patient did not endorse any psychosis. She had been agreeable to signing into the hospital voluntarily. She had continued to report significant anxiety stated that she did not know if she was going to get any better if she did not make changes at home. She had reported having problems with completion and initiation of tasks. She had reported chronically feeling overwhelmed. She had reported some improvement in sleep last night with the addition of Klonopin. She had denied any history of substance use. She had reported that she had felt discouraged by her lack of stability over the last few months. Mental Status Exam 2 MSE Comments: This is an overweight versus obese white female in hospital scrubs with improving grooming and eye contact. No abnormal movements except for mild psychomotor retardation. She was cooperative with exam in moderate distress. Speech was more normal rate and volume. Mood described as okay. Her affect was flat. Thought process was more organized. Thought content: no Suicidal or homicidal ideation evoked. She did not appear to be responding to internal stimuli. There was no evidence of delusional thinking and no ideas of reference. Attention was variable and concentration was impaired and not formally tested. She was alert and oriented x 3. Insight, judgment and impulse control were impaired. Vitals/I&O/Wt Last Vital Signs Temp 97.6 F 08/07/24 14:00 Pulse 85 08/07/24 14:00 Resp 17 08/07/24 14:00 BP 100/67 08/07/24 14:00 Pulse Ox 100 08/07/24 14:00 O2 Del Method Room Air 08/07/24 06:00 Data NPU 07/29/24 19:21 07/29/24 19:21 A&P Assessment and plan (1) Bipolar disorder: Qualifiers: Current bipolar episode type: depressed Current episode severity: s evere Psychotic features: unspecified (2) Acute psychosis: (3) Claribel: (4) Thyroid disorder: Plan This is a 34-year-old female admitted with a known history of bipolar disorder from past treatment including an inpatient hospitalization months ago presents with psychosis, likely claribel and limited ability to communicate with a negative UDS or alcohol. 1.? Continue Lamictal at 150 mg p.o. daily with advising patient about the risk for Garcia-Kg syndrome and rash and Continue Latuda to 80 mg p.o. q. evening. Continue klonopin .5mg bid to target anxiety. 2. ?We will attempt to gather collateral information from previous providers and family. 3. ?TO-15 minute checks on the unit. ? 4.? Encourage individual, group and milieu therapy 5. thyroid laboratory studies ordered today to rule out thyroid disorder for this presentation. Recheck u/a. 6. Patient signed voluntarily for continued treatment. Involuntary Hold Information 2 96 Hour Hold: 96 Hour Involuntary Admission: Yes 96 Hour Hold Ending Date: 08/02/24 96 Hour Hold Ending Time: 22:36 Attestations NPU 2 Medical Necessity Statement*: Inpatient hospitalization is medically necessary and the clinically appropriate intervention at this time. We we will monitor/initiate medications and make changes as indicated. The patient's likely length of stay is 3-5 days. Coding Level of Care Code Acute Code for [facility] Fwd Diagnoses Bipolar disorder F31.9 Current bipolar episode type: depressed Current episode severity: severe Psychotic features: unspecified Acute psychosis F23 Claribel F30.9 Thyroid disorder E07.9
[2024-08-07] MEDS: lurasidone 80 mg Tablet PO (17:32)
[2024-08-07 22:00] VITALS: BP 115/78; PULSE 87; RESP 16; TEMP 36.4; O2SAT 98
[2024-08-08 06:00] VITALS: BP 106/76; PULSE 89; RESP 16; TEMP 36.5; O2SAT 98
[2024-08-08] MEDS: levothyroxine 88 mcg Tablet PO (06:03)
[2024-08-08] MEDS: lamoTRIgine 100 mg Tablet 150 MG PO (08:20)
[2024-08-08] MEDS: CLONazepam 0.5 mg Tablet PO ×2 (08:22→20:45)
[2024-08-08 14:00] VITALS: BP 92/59; PULSE 79; RESP 16; TEMP 36.7; O2SAT 98
--- NOTE | 2024-08-08 16:26 | P.NPUPN_ITS ---
Subjective NPU 2 Subjective: 34-year-old female admitted with history of bipolar disorder with psychosis. The patient had continued to report no psychotic symptoms. She had reported that she had been feeling a little better . She had reported that she was working on trying to create organization and consistency at home. She had reported having a lack of motivation and reported continued stress at home. She had reported that Klonopin had helped her sleep better. She had continued to report having problems with managing worry but stated that she was hopeful about receiving therapy. She had reported having periods of mood instability for more than 10 years as she had related a story of having been placed on Depakote more than 15 years ago to manage her mood disorder at that time. She had reported that she had no periods of confusion here. She was able to attend groups although she had reported feeling anxious at times. Mental Status Exam 2 MSE Comments: This is an overweight versus obese white female in hospital scrubs with improving grooming and eye contact. No abnormal movements except for mild psychomotor retardation. She was cooperative with exam in mild distress. Speech was more normal in rate and volume. Mood described as okay. Her affect remained mostly anxious and restricted in range. Thought process was more organized. Thought content: no suicidal or homicidal ideation evoked. She did not appear to be responding to internal stimuli. There was no evidence of delusional thinking and no ideas of reference. Attention was variable and concentration was impaired and not formally tested. She was alert and oriented x 3. Insight, judgment and impulse control were impaired. Vitals/I&O/Wt Last Vital Signs Temp 98.1 F 08/08/24 14:00 Pulse 79 08/08/24 14:00 Resp 16 08/08/24 14:00 BP 92/59 08/08/24 14:00 Pulse Ox 98 08/08/24 14:00 O2 Del Method Room Air 08/08/24 14:00 Data NPU 07/29/24 19:21 07/29/24 19:21 A&P Assessment and plan (1) Bipolar disorder: Qualifiers: Current bipolar episode type: depressed Current episode severity: s evere Psychotic features: unspecified (2) Acute psychosis: (3) Claribel: (4) Thyroid disorder: Plan This is a 34-year-old female admitted with a known history of bipolar disorder from past treatment including an inpatient hospitalization months ago presents with psychosis, likely claribel and limited ability to communicate with a negative UDS or alcohol. 1.? Continue Lamictal at 150 mg p.o. daily with advising patient about the risk for Garcia-Kg syndrome and rash and Continue Latuda to 80 mg p.o. q. evening. Continue klonopin .5mg bid to target anxiety. 2. ?We will attempt to gather collateral information from previous providers and family. 3. ?TO-15 minute checks on the unit. ? 4.? Encourage individual, group and milieu therapy 5. thyroid laboratory studies ordered today to rule out thyroid disorder for this presentation. Recheck u/a. 6. Patient signed voluntarily for continued treatment. LIkely discharge tommorow. Involuntary Hold Information 2 96 Hour Hold: 96 Hour Involuntary Admission: Yes 96 Hour Hold Ending Date: 08/02/24 96 Hour Hold Ending Time: 22:36 Attestations NPU 2 Medical Necessity Statement*: Inpatient hospitalization is medically necessary and the clinically appropriate intervention at this time. We we will monitor/initiate medications and make changes as indicated. The patient's likely length of stay is 1-2 days. Coding Level of Care Code Acute Code for Chg Fwd Diagnoses Bipolar disorder F31.9 Current bipolar episode type: depressed Current episode severity: severe Psychotic features: unspecified Acute psychosis F23 Claribel F30.9 Thyroid disorder E07.9
[2024-08-08] MEDS: lurasidone 80 mg Tablet PO (17:19)
[2024-08-08 21:55] VITALS: BP 104/70; PULSE 83; RESP 17; TEMP 36.3; O2SAT 100
[2024-08-09 05:44] LABS: T3 Total 80 ng/dL (76-181)
[2024-08-09 06:00] VITALS: BP 100/66; PULSE 70; RESP 16; TEMP 36.3; O2SAT 97
[2024-08-09 06:04] LABS: T4 Total 9.2 mcg/dL (5.1-11.9)
[2024-08-09] MEDS: levothyroxine 88 mcg Tablet PO (06:10)
[2024-08-09] MEDS: lamoTRIgine 100 mg Tablet 150 MG PO (08:03)
[2024-08-09] MEDS: CLONazepam 0.5 mg Tablet PO (08:03)
--- NOTE | 2024-08-09 13:27 | P.NPUDS_ITS ---
Diagnoses at Discharge Discharge Diagnosis (1) Bipolar disorder: Status: Acute Qualifiers: Current bipolar episode type: depressed Current episode severity: severe Psychotic features: unspecified (2) Acute psychosis: Status: Resolved (3) Barrett: Status: Resolved (4) Thyroid disorder: Status: Acute Reason for Visit Reason for Visit: mhe Brief History: History of Present Illness Latesha Elkins is a 34 year old female who presented to the emergency department following report: Chief Complaint: Psychiatric Symptoms Stated Complaint: mhe Time Seen by Provider: 07/29/24 18:48 Source: patient and family () Mode of arrival: ambulatory Limitations: no limitations History of Present Illness: Patient is a 34-year-old female with past medical history of bipolar depression who presents to the emergency department for mental health evaluation. Patient was admitted to the neuropsychiatric unit on 06/08, where she was diagnosed with a manic episode. At that time was having illogical beliefs and thoughts of paranoia, was discharged on Latuda as well as lamotrigine, and takes levothyroxine for her thyroid. She had her antidepressant stopped at that time. Per patient and present, patient was doing well through the holidays up until 48 hours ago when patient began having paranoia again. Patient states I think that a I has taken over and are trying to get my kids in the drugs. She also comments I done a lot of bad things and I think people are out to get me. 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 Patient states she lives in the community where she thinks everyone knows everything about me now and what I have done and we will try to put me in fdc. Patient does not endorse any thoughts of suicidal ideations or homicidal ideations, but does state that she thinks everyone in her community is watching her. states that prior to coming to the emergency department, patient seemed to have a meltdown involving their 2 young children and this severely concerned them for her own wellbeing. Patient does not think she wants admitted because we will record everything about her but also states that she does not feel safe at home and has not slept for the past 2 days. She states that she stays up having premonitions about the future. Patient does not make eye contact at any point during the exam, renetta mes very tearful at multiple points. MD complaint: other (Mental health evaluation/paranoia) Onset (ago): day(s) Duration: constant History of same: Yes Context: new medication(s) and other (Recent psychiatric hospitalization) Associated symptoms: Reports depression; Deny homicidal ideation or suicidal ideation She was admitted to the neuropsychiatric unit for definitive treatment of those issues. She presented much like she has in the past with some confusion and psychomotor acting which was somewhat aimless and seeming quite fearful and worried about what her might think or what other people might think about her situation. She denied having stopped her medication and then only missing 1 dose. We discussed the risks, benefits and alternatives of restarting her medications and identifying appropriate increases as indicated. She was very rude to the idea obtain medications. An excerpt of her last inpatient stay is included below for context and the fact there have been no substantive changes. Per her 06/17/2024 [facility] inpatient psychiatric discharge summary: Diagnoses at Discharge Discharge Diagnosis (1) Bipolar disorder: Status: Acute Qualifiers: Current bipolar episode type: depressed Current episode severity: severe Psychotic features: unspecified (2) Acute psychosis: Status: Acute (3) Barrett: Status: Acute (4) Thyroid disorder: Status: Acute Reason for Visit Reason for Visit: MHE Brief History: History of Present Illness Latesha Elkins is a 34 year old female who presented to the emergency department with the following report: Chief Complaint: Psychiatric Symptoms Stated Complaint: MHE Time Seen by Provider: 06/07/24 09:17 Source: patient and family () Mode of arrival: ambulatory Limitations: no limitations History of Present Illness: Patient is a 34-year-old female presents to ED today along with her for mental health evaluation. According to the , patient has been very paranoid at home over the past several days and talking about very elaborate conspiracy theories. She feels like people are after her. Upon arrival to the ER today, she is extremely paranoid. She feels like we are giving her medical information to other people. She is hesitant to provide a history and seems very and untrustful of medical staff. Her thoughts are illogical. states she has a history of Bipolar. MD complaint: altered mental status Onset (ago): day(s) Duration: constant History of same: No Relieving factors: none Exacerbating factors: none Associated psychiatric symptoms: delusions Associated symptoms: Reports delusions; Deny auditory hallucinations, visual hallucinations, depression, homicidal id eation or suicidal ideation Treatments prior to arrival: none She was admitted to the neuropsychiatric unit for definitive treatment of those issues. She is known to [facility] psychiatry only through inpatient psychiatric care from about 16 months ago. An excerpt of her discharge summary is included below for context and history especially given her significant psychosis on presentation. She presents today continuing to have no useable information for the interview. At the time that we were communicating she was receiving medication due to her being out of control. She was seen about 16 months ago and was discharged on Seroquel XR and Depakote as mood stabilizer/antipsychotic medication and she presented taking no mood stabilizers or antipsychotics with Zoloft 50 mg as her only second medication. I tried to discuss with her the danger in giving an SSRI to a person with bipolar disorder without a mood stabilizer or antipsychotic board but it did not appear she understood. She had no findings of positive substances in her UDS, and staff report continued bizarre behavior, aimless behavior, intense emotionality without any clear cause and this was also noted on direct observation. The discussed that we would reach out to her supports to get her information and discontinue the Zoloft and recommend Abilify as a mood stabilizer/antipsychotic. Discussed that Dr. Pedro had seen her in her last visit and would be here tomorrow to continue her care. Her her 01/29/2023 [facility] inpatient psychiatric discharge summary: Discharge Diagnosis (1) Bipolar disorder: Status: Acute Qualifiers: Current bipolar episode type: depressed Current episode severity: severe Psychotic features: unspecified (2) Depression: Status: Acute Reason for Visit Reason for Visit: mhe Brief History: HPI NPU History of Present Illness Latesha Elkins is a 32 year old female with a history of type I bipolar disorder diagnosed 12 years ago who reports that she has been feeling more depressed for several months. She endorses that this is her third hospitalization for depression in the last 4 months. She reports that she has felt like her depression is getting worse. She reports low motivation and reports feeling excessively tired. She reports an increase sense of hopelessness and stated that she did not mind if she was . She reports that there has been no recent problems with barrett since her hospitalization in August 2021 for a manic episode. She does report that she had been hospitalized in September 2022 at [facility] and had been prescribed Risperdal doses of 6 mg/day with the patient reporting feeling excessively sedated. She reports that she had lower that medication down to 4 mg a day but continues to report feeling excessively tired. She had reported that she has had an extended history of medication trials for managing her manic episodes. She reports no history of mixed mood symptoms. She endorses having frequent cycling with episodes of depression or barrett occurring at least once every 3 months. She reports that she has been more tearful and states that she has been more forgetful and struggling with concentration. She had reported that she had been terrified at the possibility that her 2-year-old son had accidentally taken a pill that she thought she had left out in the home. She reports having some problems with managing reality stating that she sometimes has unusual thoughts when she is depressed as well as at times when she is manic. Her manic symptoms historically have consisted of periods of either irritability or depression with decreased need for sleep and racing thoughts. She denies any drug or alcohol abuse. Inpatient psychiatric history: She reports at least 7-8 psychiatric hosp italizations beginning at the age of 20 initially diagnosed with depression but later confirmed to have bipolar 1 disorder with a past history of overdose on medications with most recent hospitalization in September 2022 at [facility]. Outpatient psychiatric history: She reports that she sees a Dr. TIFF Damon. She reports previous medication trials include Jose Benz lithium Wellbutrin olanzapine and Prozac. Current psychiatric medications: Risperdal 2 mg 3 times a day, Depakote 500 mg twice a day, Celexa 40 mg daily, Synthroid 88 mcg daily Medical history: Hypothyroidism Surgical history: 2 C-sections Allergies: Penicillin Legal history: None Drug and alcohol history: None actively, she had reported occasional alcohol use but denies any history of alcohol dependence with no history of withdrawal symptoms. Family psychiatric history maternal history of depression and maternal grandmother have been diagnosed with bipolar disorder Social history: Patient was born in [place] and raised in an intact family. She reported no educational difficulties and graduated high school while attending college. She denied any history of mood disorders and no history of sexual physical or emotional abuse reported during childhood or adulthood. 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 She has 2 children ages 4 and 2. 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 She reports good social supports. Hospital Course During the hospitalization, the patient had routine laboratory studies which were within normal limits except for a few outliers. Additionally, there was a general medical evaluation which was also within normal limits and revealed no new acute processes. At the time of discharge, lethality was denied and psychosis was resolving. Mood and anxiety were well managed. The patient appeared quite psychotic. Her antidepressant was discontinued. She had stated that she had been off of Depakote for several weeks. The patient had initially been started on Invega but was switched to Latuda to target bipolar depression and psychosis. There was gradual improvement as this medication was titrated up to a dose of 60mg at dinnertime with no side effects. Lamotrigine was initiated to target bipolar depression at as well at 50 mg daily to be increased after 14 days on this medication. The patient endorsed a plan to avoid all drugs of abuse and follow up with the aftercare recommendations of the treatment team. The patient was evaluated and deemed to be absent credible lethality and had achieved the maximum benefit from an inpatient hospitalization, and so was discharged. Hospital Course Hospital Course Thyroid studies were found to be within normal limits. The patient had shown significant anxiety particularly chronic worry throughout her hospital stay. Klonopin was added at 0.5 mg twice a day with some significant reduction in anxiety noted. Furthermore, lamotrigine was increased to 150 mg on admission. Moreover, Latuda was increased to 80 mg to target psychosis as well. She had continued to show evidence of depression but it appeared to resolve. The patient had expressed interest in consideration for cognitive behavioral therapy to help with managing anxiety as well. She had reported no significant side effects from the increase in these medications and the initiation of Klonopin and was discharged.Additionally, there was a general medical evaluation which was also within normal limits and revealed no new acute processes.? At the time of discharge, lethality was denied and psychosis was resolving.? Mood and anxiety were well managed.? The patient endorsed a plan to avoid all drugs of abuse and follow up with the aftercare recommendations of the treatment team.? The patient was evaluated and deemed to be absent credible lethality and had achieved the maximum benefit from an inpatient hospitalization, and so was discharged. ? Involuntary Hold Information 96 Hour Hold: 96 Hour Involuntary Admission: Yes 96 Hour Hold Ending Date: 08/02/24 96 Hour Hold Ending Time: 22:36 Other Hold: Hold End Date: 08/28/24 Mental Status Exam MSE Comments: This is an overweight versus obese white female in hospital scrubs with improving grooming and eye contact. No abnormal movements except for mild psychomotor retardation. She was cooperative with exam in mild distress. Speech was more normal in rate and volume. Mood described as good. Her affect was less restricted in range. Thought process was more organized. Thought content: no suicidal or homicidal ideation evoked. She did not appear to be responding to internal stimuli. There was no evidence of delusional thinking and no ideas of reference. Attention was improved. Her recent and remote memory were grossly intact. She was alert and oriented x 3. Insight was improving. Her judgment and impulse control were fair at the time of discharge. Discharge Data Studies Completed and Pending: Completed Studies During Hospitalization Category Date Time Status XR chest 1V josesito ble [id number] Stat Exams 07/30/24 01:30 Completed Radiology Impressions Chest X-Ray 07/30/24 01:30 IMPRESSION: No acute findings. Laboratory Results WBC 9.88 10^3/uL (3.2 9-11.43) 07/29/24 19:21 RBC 4.68 10^6/uL (3.8 5-5.65) 07/29/24 19:21 Hgb 13.80 g/dL (11.27 -16.99) 07/29/24 19:21 Hct 42.1 % (36-47) 07/29/24 19:21 MCV 90.0 fl (85-98) 07/29/24 19:21 MCH 29.5 pg (27-33) 07/29/24 19:21 MCHC 32.8 g/dL (30-55) 07/29/24 19:21 RDW 13.3 % (12.1-15.1 ) 07/29/24 19:21 Plt Count 331 10^3/cmm (157 -399) 07/29/24 19:21 MPV 9.4 fL (7.4-10.4) 07/29/24 19:21 Neut % (Auto) 68.8 % 07/29/24 19:21 Lymph % (Auto) 23.1 % 07/29/24 19:21 Darke % (Auto) 6.6 % 07/29/24 19:21 Eos % (Auto) 0.7 % 07/29/24 19:21 Baso % (Auto) 0.5 % 07/29/24 19:21 Neut # (Auto) 6.80 10^3/uL (1.8 -7.7) 07/29/24 19:21 Lymph # (Auto) 2.3 10^3/uL (0.8- 4.8) 07/29/24 19:21 Darke # (Auto) 0.7 10^3/uL (0.2- 0.9) 07/29/24 19:21 Eos # (Auto) 0.1 10^3/uL (0.0- 0.8) 07/29/24 19:21 Baso # (Auto) 0.1 10^3/uL (0.0- 0.1) 07/29/24 19:21 Nucleated RBC % (a uto) 0 % 07/29/24 19:21 Nucleated RBCs # 0.0 /100WBC 07/29/24 19:21 Sodium 138 mmol/L (136-1 45) 07/29/24 19:21 Potassium 4.5 mmol/L (3.5-5 .1) 07/29/24 19:21 Chloride 102 mmol/L (98-10 7) 07/29/24 19:21 Carbon Dioxide 25 mmol/L (22-29) 07/29/24 19:21 Anion Gap 15.5 (5-19) 07/29/24 19:21 BUN 11 mg/dL (6-20) 07/29/24 19:21 Creatinine 0.7 mg/dL (0.5-0. 9) 07/29/24 19:21 GFR Calculation 94.7 mL/min (90-1 30) 07/29/24 19:21 Glucose 91 mg/dL (65-115) 07/29/24 19:21 Calculated Osmolal ity 285 mOsm/kg (285- 295) 07/29/24 19:21 Calcium 9.5 mg/dL (8.5-10 .5) 07/29/24 19:21 Total Bilirubin 0.3 mg/dL (0.15-1 .2) 07/29/24 19:21 AST 17 U/L (0-32) 07/29/24 19:21 ALT 13 U/L (0-33) 07/29/24 19:21 Alkaline Phosphata se 73 U/L (35-105) 07/29/24 19:21 Total Protein 8.0 g/dL (6.6-8.7 ) 07/29/24 19:21 Albumin 4.7 g/dL (3.5-5.2 ) 07/29/24 19:21 Globulin 3.3 g/dL (1.3-4.6 ) 07/29/24 19:21 TSH 2.30 uIU/mL (0.27 -4.20) 08/07/24 16:57 Thyroxine (T4) 9.2 mcg/dL (5.1-1 1.9) 08/07/24 16:57 Total T3 80 ng/dL (76-181) 08/07/24 16:57 HCG, Qual Negative (Negati ve) 07/29/24 19:21 Urine Color Yellow (Yellow) 07/30/24 08:58 Urine Appearance Clear (CLEAR) 07/30/24 08:58 Urine pH >=9.0 (5-7) A 07/30/24 08:58 Ur Specific Gravit y 1.024 (1.005-1.0 30) 07/30/24 08:58 Urine Protein 1+ (Negative) A 07/30/24 08:58 Urine Glucose (UA) Negative (Normal ) 07/30/24 08:58 Urine Ketones Negative (Negati ve) 07/30/24 08:58 Urine Blood 3+ (Negative) A 07/30/24 08:58 Urine Nitrate Negative (Negati ve) 07/30/24 08:58 Urine Bilirubin Negative (Negati ve) 07/30/24 08:58 Urine Urobilinogen 1.0 mg/dL (Negati ve) 07/30/24 08:[address] ase 1+ (Negative) A 07/30/24 08:58 Urine RBC 11-20 /hpf (0-2) H 07/30/24 08:58 Urine WBC 0-5 /hpf (0-5) 07/30/24 08:58 Ur Squamous Epith Cells 6-10 /hpf (0-5) 07/30/24 08:58 Triple Phos Marichuy ls 5-10 /hpf H 07/30/24 08:58 Amorphous Sediment Not Reportable 07/30/24 08:58 Urine Bacteria None seen /hpf (N ONE) 07/30/24 08:58 Hyaline Casts 0-4 /lpf H 07/30/24 08:58 Salicylates 1.4 mg/dL (3-10) L 07/29/24 19:21 Urine Opiates Scre en Negative ng/mL (N egative) 07/29/24 19:45 Acetaminophen < 5.0 ug/mL (10-3 0) L 07/29/24 19:21 Ur Barbiturates Sc reen Negative ng/mL (N egative) 07/29/24 19:45 Ur Phencyclidine S crn Negative ng/mL (N egative) 07/29/24 19:45 Ur Amphetamines Sc reen Negative ng/mL (N egative) 07/29/24 19:45 U Benzodiazepines Scrn Negative ng/mL (N egative) 07/29/24 19:45 Urine Cocaine Scre en Negative ng/mL (N egative) 07/29/24 19:45 U Marijuana (THC) Screen Negative ng/mL (N egative) 07/29/24 19:45 Ethyl Alcohol < 10 mg/dL (0-10) 07/29/24 19:21 Adenovirus (PCR) Not detected (NO T DETECT) 07/30/24 01:54 C. pneumoniae DNA (PCR) Not detected (NO T DETECT) 07/30/24 01:54 Coronavirus 229E ( PCR) Not detected (NO T DETECT) 07/30/24 01:54 Human Metapneumovi r PCR Not detected (NO T DETECT) 07/30/24 01:54 Influenza A (H1) P CR Not detected (NO T DETECT) 07/30/24 01:54 Influ A (H1/09) PC R Not detected (NO T DETECT) 07/30/24 01:54 Influenza A (H3) P CR Not detected (NO T DETECT) 07/30/24 01:54 Influenza Type A ( PCR) Not detected (NO T DETECT) 07/30/24 01:54 Influenza Type B ( PCR) Not detected (NO T DETECT) 07/30/24 01:54 M. pneumoniae (PCR ) Not detected (NO T DETECT) 07/30/24 01:54 Parainfluenza 1 (P CR) Not detected (NO T DETECT) 07/30/24 01:54 Parainfluenza 2 (P CR) Not detected (NO T DETECT) 07/30/24 01:54 Parainfluenza 3 (P CR) Not detected (NO T DETECT) 07/30/24 01:54 Parainfluenza 4 (P CR) Not detected (NO T DETECT) 07/30/24 01:54 RSV Type A (PCR) Not detected (NO T DETECT) 07/30/24 01:54 RSV Type B (PCR) Not detected (NO T DETECT) 07/30/24 01:54 Entero/Rhino (PCR) Not detected (NO T DETECT) 07/30/24 01:54 SARS-CoV-2 (PCR) Not detected (NO T DETECT) 07/30/24 01:54 Vitals: Last Vital Signs Temp 97.4 F L 08/09/24 06:00 Pulse 70 08/09/24 06:00 Resp 16 08/09/24 06:00 BP 100/66 08/09/24 06:00 Pulse Ox 97 08/09/24 06:00 O2 Del Method Room Air 08/09/24 06:00 Discharge Plan Discharge Patient Disposition: Home Condition: Stable Prescriptions: New clonazepam 0.5 mg Tablet 0.5 mg PO 0900,2100 30 Days Qty: 60 1RF lurasidone [Latuda] 80 mg Tablet 80 mg PO 1800 30 Days Qty: 30 1RF lamotrigine 100 mg tablet 100 mg PO DAILY Qty: 45 1RF Rx Instructions: 1/2 tablet in AM , one tablet at night. lurasidone [Latuda] 80 mg tablet 80 mg PO 1800 Qty: 30 0RF Rx Instructions: must administer with food (at least 350 calories) lamotrigine 100 mg tablet 100 mg PO DIRECTED Qty: 45 1RF Rx Instructions: 1/2 tablet in AM, one tablet at night Continued levothyroxine 88 mcg tablet 88 mcg PO QAM omega 3-sha-meb-fish oil [Fish Oil] 1,000 (120-180) mg Capsule 1 cap PO DAILY Discontinued lurasidone 60 mg tablet 60 mg PO 1800 30 Days Qty: 30 1RF Rx Instructions: take with dinner. lamotrigine 100 mg tablet extended release 24hr 100 mg PO DAILY Qty: 30 1RF Rx Instructions: Begin on 06/27/24 after completion of previous Lamotrigine script. Discharge Orders: Discharge Order (Routine); Ordered 08/09/24 Ordered By: Biju Pedro Referrals: Katie Aggarwal [Other] - 08/13/24 1:30 pm Starr Aleman [Other] - 08/13/24 10:00 am (By telehealth) Thomas Sapp, [facility] [facility] [Primary Care Provider] - Discharge Diet: Usual diet Discharge Activity: Resume usual activity Patient Instructions: Clonazepam (By mouth) (Klonopin), Lamotrigine (By mouth) (Lamictal, Lamictal CD, Lamictal ODT,..., Depression (DC), Generalized Anxiety Disorder (GEN), Social Anxiety Disorder (GEN), Help Prevent Suicide (DC), Opioid Safety Discharge Attestations NPU Time Spent in Discharge Care*: less than 30 min Specific Discharge Activities: Specific discharge activities: educating patient, discussing with continuous pillowcase cutter/social workers/dc planners and documenting/other paperwork Coding Level of Care Code Acute Code for Chg Fwd Diagnoses Bipolar disorder F31.9 Current bipolar episode type: depressed Current episode severity: severe Psychotic features: unspecified Acute psychosis F23 Barrett F30.9 Thyroid disorder E07.9
[2024-08-09 13:38] VITALS: BP 100/66; PULSE 70; RESP 16; TEMP 36.3; O2SAT 97
[2024-08-09 14:05] VITALS: BP 100/66; PULSE 70; RESP 16; TEMP 36.3; O2SAT 97
== END 2024-08-09 15:34 | disposition home or self-care (01) | DRG 885 ==
LOC: ER 21:13 → NP 07-30 18:08
PROVIDERS: Emergency Medicine; Psychiatry & Neurology Psychiatry; Admitting Provider Psychiatry & Neurology Psychiatry; Emergency Provider Physician Assistant; PCP Nurse Practitioner; Visit Provider Psychiatry & Neurology Psychiatry
DX: F31.9 Bipolar disorder, unspecified (principal); E66.9 Obesity, unspecified; Z68.33 Body mass index [BMI] 33.0-33.9, adult; E07.9 Disorder of thyroid, unspecified
CPT/HCPCS: 36415; 71045; 80053; 80306; 80307; 81001; 84436; 84443; 84480; 84703; 85025; 87086; 87486; 87581; 87633; 93005; 97150; 97165; 99285